=== PATIENT | female | born 1985 | race African-American/Black ===

== ENCOUNTER 2020-04-15 15:18 | Emergency (ER) | payer OTHER ==
--- OUTSIDE RECORDS SUMMARY | 2020-04-15 15:24 | XMS REPORT | Clinical Summary ---
:1985 Author Organization [facility] Address [address] [place] [address] Care Team Providers Name Role Phone Asked, No Pcp Primary Care Provider Unavailable Allergies No Known Allergies Medications Medication Sig Dispensed Refills Start Date End Date Status acetaminophen (TYLENOL Take 2 tablets 30 tablet 0 08/06/2019 0 09/05/2019 EXTRA STRENGTH) 500 MG (1,000 mg tablet total) by mouth every 6 (six) hours as needed for moderate pain for up to 30 days. ibuprofen (ADVIL) 600 Take 1 tablet 30 tablet 0 08/06/201912/2019 MG tablet (600 mg total) by mouth every 8 (eight) hours as needed for moderate pain for up to 30 days. metoclopramide Take 1 tablet 30 tablet 0 08/06/2019 09/05/2019 (REGLAN) 10 MG tablet (10 mg total) by mouth every 6 (six) hours for 30 days. Active Problems Not on file Encounters Date Type Specialty Care Team Description 08/06/2019 Emergency Emergency Medicine [facility] Deh ylupe (Primary Dx); Tachycardia; Myalgia; Arthralgia, uns pecified joint after 04/15/2019 Social History Tobacco Use Types Packs/Day Years Used Date Never Assessed Sex Assigned at Date Recorded Not on file Job Start Date Occupation Industry Not on file Not on file Not on file Travel History Travel Start Travel End No recent travel history available. Last Filed Vital Signs Vital Sign Reading Time Taken Comments Blood Pressure 115/61 08/06/2019 11:50 AM [employer] Pulse 105 08/06/2019 11:50 AM [employer] Temperature 37 C (98.6 F) 08/06/2019 11:50 AM [employer] Respiratory Rate 18 08/06/2019 11:50 AM [employer] Oxygen Saturation 95% 08/06/2019 11:50 AM [employer] Inhaled Oxygen Concentration - - Weight - - Height 170.2 cm (5' 7") 08/06/2019 11:51 AM [employer] Body Mass Index - - Plan of Treatment Health Maintenance Due Date Last Done Comments CERVICAL CANCER SCREENING 11/05/2008 INFLUENZA VACCINE 03/31/2020 07/10/2019 Procedures Procedure Name Priority Date/Time Associated Comments Diagnosis URINE CULTURE STAT 08/06/2019 1:50 Results fo r this PM [employer] procedure are i n the results section. GRAM STAIN STAT 08/06/2019 1:50 Results for this PM [employer] procedure are i n the results section. URINALYSIS SCREEN AND STAT 08/06/2019 12:59 Re sults for this MICROSCOPY, WITH PM [employer] procedure a re in REFLEX TO CULTURE the result s section. POC , URINE STAT 08/06/2019 12:55 Res ults for this PM [employer] procedure are i n the results section. RESPIRATORY PATHOGEN Routine 08/06/2019 12:17 Res ults for this PANEL PM [employer] procedure are i n the results section. INFLUENZA ANTIGEN Routine 08/06/2019 12:17 Result s for this TEST, REFLEX NEGATIVE PM [employer] proced ure are in TO RPP the results section. MUMPS VIRUS ANTIBODY, Routine 07/10/2019 10:21 Examination, Re sults for this IGG AM [employer] physical, employee procedure are in the results section. VARICELLA ZOSTER Routine 07/10/2019 10:21 Examination, Results for this VIRUS AB, IGG AM [employer] physical, employee procedur e are in the results section. RUBELLA AB IGG Routine 07/10/2019 10:21 Examination, Results f or this AM [employer] physical, employee procedure are in the results section. MEASLES (RUBEOLA) Routine 07/10/2019 10:21 Examination, Result s for this ANTIBODY IGG AM [employer] physical, employee procedure are in the results section. HEPATITIS B SURFACE Routine 07/10/2019 10:21 Examination, Resu lts for this ANTIBODY AM [employer] physical, employee procedure are in the results section. after 04/15/2019 Results Gram stain (08/06/2019 1:50 PM [employer]) Gram stain result No WBC's or organisms seen. LALY GAINES Comment: HOSPITAL Specimen Information Specimen Source: Urine Specimen Site: Clean catch Specimen Urine Performing Organization Address City/State/Zipcode Phone Number [facility] DEPARTMENT OF PATHOLOGY AND [address] [place] [phone] Urine culture (08/06/2019 1:50 PM [employer]) Urine culture Mixed rachid 10-4 col/cc [facility] isolate Comment: HOSPITAL Specimen Information Specimen Source: Urine Specimen Site: Clean catch Specimen Urine Performing Organization Address City/[facility] Phone Number [facility] DEPARTMENT OF PATHOLOGY AND [address] [place] [phone] Urinalysis screen and microscopy, with reflex to culture (08/06/2019 12:59 PM [employer]) Specimen site Clean catch [facility] Color, UA Yellow [facility] Appearance, UA Hazy [facility] Specific gravity, UA 1.029 1.001 - 1.035 [facility] pH, UA 5.0 5.0 - 8.5 [facility] Protein, UA Negative Negative [facility] Glucose, UA Negative Negative [facility] Ketones, UA Negative Negative [facility] Bilirubin, UA Negative Negative [facility] Blood, UA Large (A) Negative [facility] Nitrite, UA Negative Negative [facility] Urobilinogen, UA <2.0 <2.0 [facility] Leukocyte esterase, Negative Negative [facility] Epithelial cells, UA <1 /HPF [facility] Round epithelial <1 0 - 1 /HPF [facility] cells, HOSPITAL WBC, UA 2 0 - 4 /HPF [facility] RBC, UA 3 0 - 5 /HPF [facility] Bacteria, UA Moderate (A) None seen [facility] Yeast, UA None seen [facility] Yeast with None seen [facility] pseudohyphae, HOSPITAL Specimen Urine Performing Organization Address City/[facility]/Zipcode Phone Number [facility] DEPARTMENT OF PATHOLOGY AND [address] [place] [phone] POC , urine (08/06/2019 12:55 PM [employer]) Pathologist Sig nature test urine, POC Negative QC done Yes Specimen Urine Respiratory pathogen panel (08/06/2019 12:17 PM [employer]) Respiratory Negative for all pathogens tested: [facility] pathogen panel Negative for Adenovirus [facility] Negative for Coronavirus HKU1 [facility] Negative for Coronavirus NL63 Negative for Coronavirus 229E Negative for Coronavirus OC43 Negative for Human Metapneumovirus Negative for Rhinovirus/Enterovirus Negative for Influenza A Negative for Influenza A/H1 Negative for Influenza A/H3 Negative for Influenza A/H1-2009 Negative for Influenza B Negative for Parainfluenza Virus 1 Negative for Parainfluenza Virus 2 Negative for Parainfluenza Virus 3 Negative for Parainfluenza Virus 4 Negative for Respiratory Syncytial Virus Negative for Bordetella pertussis Negative for Chlamydophila pneumoniae Negative for Mycoplasma pneumoniae This real-time PCR assay detects the presence of nucle ic acids (RNA or DNA) for the respiratory pathogens liste d. A result of "Not-detected" does not exclude the possib ility of the presence of one or more pathogens at concentrat ions less than the detectable limits of the assay. Comment: Specimen Information Specimen Source: Nares Specimen Site: Left Specimen Nares - Left Performing Organization Address City/[facility] Phone Number [facility] DEPARTMENT OF PATHOLOGY AND [address] [place] [phone] Influenza antigen test, reflex negative to RPP (08/06/2019 12:17 PM [employer]) [facility] Influenza antigen Negative for Influenza A/B antigen. [facility] Comment: HOSPITAL Specimen Information Specimen Source: Nares Specimen Site: Left Specimen Nares - Left Performing Organization Address City/[facility]/Zipcode Phone Number [facility] DEPARTMENT OF PATHOLOGY AND [address] [place] [phone] Measles (rubeola) antibody IgG (07/10/2019 10:21 AM [employer]) [facility] Measles (rubeola) Positive (A) Negative [facility] Ab, IgG Comment: HOSPITAL IgG antibody to Measles detected. This may indicate that the patient was exposed to Measles through infection or vaccination. Specimen Serum Performing Organization Address City/[facility]/Zipcode Phone Number [facility] DEPARTMENT OF PATHOLOGY AND [address] [place], [place] [id number] [address] [place] [phone] Rubella Ab IgG (07/10/2019 10:21 AM [employer]) Rubella IgG Positive Negative [facility] antibody Comment: [facility]OS[facility]ITAL IgG antibody levels are at a level that are considered to indicate positive immunity Specimen Serum Performing Organization Address City/State/Zipcode Phone Number [facility] DEPARTMENT OF PATHOLOGY AND [address] [place] [address] [phone] [address] Hepatitis B surface antibody (07/10/2019 10:21 AM [employer]) Pathologist Sig nature Hepatitis B surface Reactive (A) Non-reactive [facility] Specimen Blood Performing Organization Address City/[facility] Cent[facility]ode Phone Number [facility] DEPARTMENT OF PATHOLOGY AND [address] [place] [phone] Varicella zoster virus Ab, IgG (07/10/2019 10:21 AM [employer]) Pathologist Sig nature VZV IgG Positive (A) Negative LALY GAINES Comment: HOSPITAL IgG antibody to VZV detected. This may indicate that the patient was exposed to VZV through infection or vaccination. Specimen Serum Performing Organization Address City/[facility]/Zipcode Phone Number [facility] DEPARTMENT OF PATHOLOGY AND [address] [place] [phone] Mumps virus antibody, IgG (07/10/2019 10:21 AM [employer]) Pathologist Sig nature Mumps Ab, IgG Positive (A) Negative [facility] Comment: HOSPITAL IgG antibody to Mumps detected. This may indicate that the patient was exposed to Mumps through infection or vaccination. Specimen Serum Performing Organization Address City/State/Zipcode Phone Number [facility] DEPARTMENT OF PATHOLOGY AND [address] [place] [address] [place] [phone] after 04/15/2019 Advance Directives For more information, please contact: [phone] Type Date Recorded Patient Supply Person Explanati on Advance Directives, Living Will and Medical Power of Community Recreation Programmer
--- OUTSIDE RECORDS SUMMARY | 2020-04-15 15:25 | XMS REPORT | Continuity of Care Document ---
:1985 Author Organization [facility] Care Team Providers Name Role Phone [facility] Unavailable Un available Problems Problem Status Onset Classification Date Comments Sourc e Date Reported Allergy, 06/27/2019 [facility] r unspecified, 9 [place] initial encounter Wheezing 06/27/2019 [facility] 9 [place] ALLERGIC Active [facility] REACTION/ 9 [place] ABDOMINAL PAIN / VOMI FOLLOWUP/WORKNO [facility] [place] Unspecified 05/30/2019 [place] convulsions 9 SEISURE Active [facility] st 9 Epilepsy, 04/11/2019 Memori al unspecified, 9 [place] not intractable, without status epilepticus SEIZURES Active Memoria l 9 [facility] TEMPORAL BONE Active Mem orial FRACTURE 9 [facility] EAR BLEED Active Memoria l 9 [place] Nausea with 10/05/2018 Nic rial vomiting, 9 [place] unspecified NAUSA, Active Memoria l VOMMITING 9 [facility] SKIN Active Memoria l IRRITAITION TO 9 City HANDS/FOREARM Contact with 09/25/2018 Mem orial and (suspected) 9 City exposure to other hazardous, chiefly nonmedicinal, chemicals Other skin 09/25/2018 Memor ial changes 9 [place] Insect bite 09/22/2018 MH Nic rial (nonvenomous) 9 [place] of scalp, initial encounter Insect bite 09/22/2018 MH Nic rial (nonvenomous) 9 [place] of left wrist, initial encounter Insect bite 09/22/2018 MH Nic rial (nonvenomous) 9 [place] of right wrist, initial encounter INSECT BITES Active MH Nic rial 9 [facility] OT FRACTURE OF Active [facility] BASE OF SKULL, [facility] IN FOR Medications Medication Details Route Status Patient Ordering Order Source Instructions Provider Date Famotidine 20 MG 20 mg = 1 Active Gr eater Oral Tablet tab, PO, 2018 [facility] BID, # 6 tab, 0 Refill(s) predniSONE 20 mg 60 mg = 3 Active Gr eater oral tablet tab, PO, 2018 Daily, Take 3 tablets for 60 mg dose, X 3 day, # 9 tab, 0 Refill(s) Diphenhydramine 25 mg = 1 Active Artemio ater Hydrochloride 25 tab, PO, 2018 [place] s MG Oral Tablet BID, X 5 [Benadryl] day, # 10 tab, 0 Refill(s) albuterol 90 2 puff, Active [facility] mcg/inh INHALATION, 2018 [facility] inhalation Q4H, PRN for aerosol wheezing, # 9 gm, 0 Refill(s) Sodium Chloride 1,000 mL, Inactive Gr eater 0.9% (Bolus) IV Infuse Over: 2018 [place] 1 hr, Route: IV, ONCE, Priority: STAT, Dosing Weight 77.955 kg, Start date: 06/25/19 0:56:00 CLEANER GREASER, Stop date: 06/25/19 0:56:00 CLEANER GREASER Albuterol 0.833 9 mL, Route: Inactive Greater MG/ML / NEB, Dosing 2018 [facility] Ipratropium Weight [place] 0.167 77.955, kg, MG/ML Inhalant ONCE, Start Solution [DuoNeb] date: 06/25/19 0:52:00 CLEANER GREASER, Stop date: 06/25/19 0:52:00 CLEANER GREASER Solu-Medrol Notes: (Same Inactive Gre ater as:Solu-MEDR 2019 [facility] OL, A-Methapred) Benadryl Notes: (Same Inactive Greate r as: 2019 [place] Benadryl) Pepcid Notes: (Same Inactive Greater as: Pepcid) 2019 [place] Can be dilute in 5-10cc NS IVP: Slow IV push over at least 2 minutes. Levetiracetam 500 Notes: (Same Inactive MG Oral Tablet as:Keppra) 2019 [facility] est [Keppra] Motrin Notes: (Same Inactive as: Motrin) 2018 [facility] "Do Not Crush" Give with food. Levetiracetam 750 750 mg = 1 Active MG Oral Tablet tab, PO, 2018 [facility] [Keppra] BID, # 60 [facility] tab, 0 Refill(s) Tylenol 650 mg, Inactive Route: PO, 2018 [facility] Drug form: [facility] TAB, ONCE, Dosing Weight 87.273, kg, Priority: STAT, Start date: 04/09/19 17:13:00 CDT, Stop date: 04/09/19 17:13:00 CDT Ativan 1 mg, Route: Inactive PO, Drug 2018 [facility] form: TAB, [facility] ONCE, Dosing Weight 87.273, kg, Priority: STAT, Start date: 04/09/19 17:13:00 CDT, Stop date: 04/09/19 17:13:00 CDT Keppra 1,000 mg, Inactive Route: IV, 2018 [facility] ONCE, Dosing [facility] Weight 87.273, kg, Priority: STAT, Start date: 04/09/19 17:12:00 CDT, Stop date: 04/09/19 17:12:00 CDT Meclizine Notes: (Same No Longer as: Active 2019 [facility] Antivert) [facility] Meclizine Notes: (Same No Longer as: Active 2019 [facility] Antivert) [facility] Levetiracetam 500 Notes: (Same No Longer MG Oral Tablet as:Keppra) Active 2019 Memori al [Keppra] [facility] Morphine Notes: (Same No Longer as:MORPhine Active 2019 [facility] Sulfate) [facility] Glucagon 1 mg, Route: No Longer IM, Drug Active 2018 [facility] form: [facility] PDR/INJ, PRN, Dosing Weight 81.818, kg, PRN Blood Glucose Results, Start date: 10/15/18 16:08:00 CDT, Duration: 30 day, Stop date: 11/14/18 16:07:00 CDT Acetaminophen Notes: Do No Longer not exceed [address] [place] [id number] gm/day. City (Same as: Tylenol) Ondansetron Notes: (Same No Longer as: Zofran) Active 2018 [facility] MEDICATION WASTE Product Size: 4 mg Product Wasted: _0__ mg Dextrose 50% 25 gm, 50 No Longer Syringe mL, Route: Active 2018 [facility] IVP, Drug City Form: INJ, Dosing Weight 81.818, kg, PRN, PRN Blood Glucose Results, Start date: 10/15/18 16:08:00 CDT, Duration: 30 day, Stop date: 11/14/18 16:07:00 CDT Levetiracetam 500 1,000 mg = 2 Active H MG Oral Tablet tab, PO, 2018 [facility] [Keppra] BID, 0 City Refill(s) Ondansetron 4 MG 4 mg = 1 Active Disintegrating tab, PO, 2018 [facility] Tablet [Zofran] BID, PRN [facility] Nausea and Vomiting, Dissolve tab under tongue, # 10 tab, 0 Refill(s) NS (Bolus) IV 1,000 mL, Inactive 1,000 ml/hr, 2018 [facility] Infuse Over: City 1 hr, Route: IV, 1,000, Drug form: INJ, ONCE, Priority: STAT, Dosing Weight 81.818 kg, Start date: 10/02/18 9:12:00 CLEANER GREASER, Stop date: 10/02/18 9:12:00 CLEANER GREASER Allergies, Adverse Reactions, Alerts Substance Category Reaction Severity Reaction Status Date Comments S ource type Reported No Known Assertion Drug Medication allergy [facility] er Allergies [facility] s Immunizations No Data Provided for This Section Results Order Name Results Value Reference Date Interpretation Comments Delilah rce [facility] CHEM PANEL Glucose Lvl 111 70 - 99 06/25 [facility] CHEM PANEL BUN 13 7 - 22 06/25 [facility] CHEM PANEL Creatinine 0.89 0.50 - 06/25 Lvl 1.40 /2018 [facility] CHEM PANEL Sodium Lvl 141 135 - 145 06/25 [facility] CHEM PANEL Potassium 3.7 3.5 - 5.1 06/25 Lvl /2018 [facility] CHEM PANEL Chloride Lvl 110 95 - 109 06/25 [facility] CHEM PANEL CO2 25 24 - 32 06/25 [facility] CHEM PANEL Calcium Lvl 8.5 8.5 - 10.5 06/25 [facility] CHEM PANEL Total 7.1 6.4 - 8.4 06/25 Protein [facility] CHEM PANEL Albumin Lvl 3.6 3.5 - 5.0 06/25 [facility] CHEM PANEL ALT 13 0 - 65 06/25 [facility] CHEM PANEL AST 12 0 - 37 06/25 [facility] CHEM PANEL Alk Phos 50 39 - 136 06/25 [facility] CHEM PANEL Bili Total 0.3 0.2 - 1.3 06/25 [facility] CHEM PANEL eGFR 87 06/25 Comment: The [facility] eGFR is [place] calculated using the CKD-EPI formula. In most young, healthy individuals the eGFR will be >90 mL/min/1.73m2 . The eGFR declines with age. An eGFR of 60-89 may be normal in some populations, particularly the elderly, for whom the CKD-EPI formula has not been extensively validated. Use of the eGFR is not recommended in the following populations:< br/>
Natalie viduals with unstable creatinine concentration s, including patients and those with serious co-morbid conditions.<b r/>
Patie nts with extremes in muscle mass or diet.

The data above are obtained from the National Kidney Disease Education Program (NKDEP) which additionally recommends that when the eGFR is used in patients with extremes of body mass index for purposes of drug dosing, the eGFR should be multiplied by the estimated BMI. CHEM PANEL AGAP 9.7 10.0 - 06/25 20.0 [facility] CHEM PANEL B/C Ratio 15 6 - 25 06/25 [facility] CHEM PANEL Globulin 3.5 2.7 - 4.2 06/25 [facility] CHEM PANEL A/G Ratio 1.0 0.7 - 1.6 06/25 [facility] ENDOCRINOLO S Preg Negative Negative 06/25 GY *NA* /2018 [facility] (06/25/19 12:48 AM) [place] HEMATOLOGY WBC 7.0 3.7 - 10.4 06/25 [facility] HEMATOLOGY RBC 3.81 4.20 - 06/25 5.40 /2018 [facility] [place] HEMATOLOGY Hgb 10.0 12.0 - 06/25 16.0 /2018 [facility] [place] HEMATOLOGY Hct 30.3 36.0 - 06/25 48.0 /2018 [facility] [place] HEMATOLOGY MCV 79.6 80.0 - 06/25 98.0 /2018 [facility] [place] HEMATOLOGY MCH 26.3 27.0 - 06/25 MH 31.0 /2018 [facility] [place] HEMATOLOGY MCHC 33.0 32.0 - 06/25 36.0 /2018 [facility] HEMATOLOGY RDW 13.6 11.5 - 06/25 14.5 /2018 [facility] HEMATOLOGY Platelet 223 133 - 450 06/25 /2018 [facility] HEMATOLOGY MPV 6.8 7.4 - 10.4 06/25 /2018 [facility] HEMATOLOGY Segs 60.3 45.0 - 06/25 75.0 /2018 [facility] HEMATOLOGY Lymphocytes 28.3 20.0 - 06/25 40.0 /2018 [facility] HEMATOLOGY Monocytes 9.3 2.0 - 12.0 06/25 /2018 [facility] [place] HEMATOLOGY Eosinophils 1.7 0.0 - 4.0 06/25 /2018 [facility] [place] HEMATOLOGY Basophils 0.4 0.0 - 1.0 06/25 /2018 [facility] HEMATOLOGY Neutrophils 4.2 1.5 - 8.1 06/25 MH # /2018 [facility] HEMATOLOGY Lymphocytes 2.0 1.0 - 5.5 06/25 MH # /2018 [facility] HEMATOLOGY Monocytes # 0.7 0.0 - 0.8 06/25 /2018 [facility] HEMATOLOGY Eosinophils 0.1 0.0 - 0.5 06/25 MH # /2018 [facility] ELECTROLYTE Sodium Lvl 139 135 - 145 /10 MH S /2018 [facility] ELECTROLYTE Potassium 3.7 3.5 - 5.1 04/09 MH S Lvl /2018 [facility] ELECTROLYTE Chloride Lvl 110 95 - 109 04/09 MH S /2018 [facility] ELECTROLYTE Calcium Lvl 8.6 8.5 - 10.5 04/09 MH S /2018 [facility] ELECTROLYTE Glucose Lvl 95 70 - 99 04/09 MH S /2018 [facility] ELECTROLYTE BUN 14 7 - 22 / MH S /2018 [facility] ELECTROLYTE CO2 23 24 - 32 / MH S /2018 [facility] ELECTROLYTE Creatinine 0.96 0.50 - 04/09 MH S Lvl 1.40 /2018 [facility] ELECTROLYTE eGFR 79 04/09 Result S /2018 Comment: The [facility] eGFR is [place] calculated using the CKD-EPI formula. In most young, healthy individuals the eGFR will be >90 mL/min/1.73m2 . The eGFR declines with age. An eGFR of 60-89 may be normal in some populations, particularly the elderly, for whom the CKD-EPI formula has not been extensively validated. Use of the eGFR is not recommended in the following populations:< br/>
Natalie viduals with unstable creatinine concentration s, including patients and those with serious co-morbid conditions.<b r/>
Patie nts with extremes in muscle mass or diet.

The data above are obtained from the National Kidney Disease Education Program (NKDEP) which additionally recommends that when the eGFR is used in patients with extremes of body mass index for purposes of drug dosing, the eGFR should be multiplied by the estimated BMI. ELECTROLYTE AGAP 9.7 10.0 - 04/09 S 20.0 [facility] ENDOCRINOLO S Preg Negative Negative 04/09 GY *NA* /2018 [facility] (04/09/19 5:14 PM) [facility] HEMATOLOGY WBC 9.1 3.7 - 10.4 04/09 [facility] HEMATOLOGY RBC 4.27 4.20 - 04/09 5.40 [facility] HEMATOLOGY Hgb 11.2 12.0 - 04/09 16.0 [facility] HEMATOLOGY Hct 34.0 36.0 - 04/09 48.0 [facility] HEMATOLOGY MCV 79.7 80.0 - 04/09 98.0 /2018 [facility] HEMATOLOGY MCH 26.1 27.0 - 04/09 31.0 [facility] HEMATOLOGY MCHC 32.8 32.0 - 04/09 36.0 [facility] HEMATOLOGY RDW 14.1 11.5 - 04/09 14. [facility] HEMATOLOGY Platelet 262 133 - 450 04/09 [facility] HEMATOLOGY MPV 7.7 7.4 - 10.4 04/09 [facility] HEMATOLOGY Segs 64.1 45.0 - 04/09 75.0 /2018 [facility] HEMATOLOGY Lymphocytes 23.8 20.0 - 04/09 MH 40.0 [facility] HEMATOLOGY Monocytes 9.8 2.0 - 12.0 04/09 [facility] HEMATOLOGY Eosinophils 1.6 0.0 - 4.0 04/09 [facility] HEMATOLOGY Basophils 0.7 0.0 - 1.0 04/09 [facility] HEMATOLOGY Neutrophils 5.8 1.5 - 8.1 04/09 [facility] HEMATOLOGY Lymphocytes 2.2 1.0 - 5.5 04/09 [facility] HEMATOLOGY Monocytes # 0.9 0.0 - 0.8 04/09 [facility] HEMATOLOGY Eosinophils 0.1 0.0 - 0.5 04/09 [facility] HEMATOLOGY Basophils # 0.1 0.0 - 0.2 04/09 [facility] CHEM PANEL BUN 13 7 - 22 10/17 [facility] CHEM PANEL CO2 27 24 - 32 10/17 [facility] CHEM PANEL Potassium 4.2 3.5 - 5.1 10/17 Lvl /2018 [facility] CHEM PANEL Sodium Lvl 143 135 - 145 10/17 [facility] CHEM PANEL Chloride Lvl 105 95 - 109 10/17 [facility] CHEM PANEL Calcium Lvl 9.1 8.5 - 10.5 10/17 [facility] CHEM PANEL Glucose Lvl 82 70 - 99 10/17 [facility] CHEM PANEL eGFR 97 10/17 Result Comment: The [facility] eGFR is [place] calculated using the CKD-EPI formula. In most young, healthy individuals the eGFR will be >90 mL/min/1.73m2 . The eGFR declines with age. An eGFR of 60-89 may be normal in some populations, particularly the elderly, for whom the CKD-EPI formula has not been extensively validated. Use of the eGFR is not recommended in the following populations:< br/>
Natalie viduals with unstable creatinine concentration s, including patients and those with serious co-morbid conditions.<b r/>
Patie nts with extremes in muscle mass or diet.

The data above are obtained from the National Kidney Disease Education Program (NKDEP) which additionally recommends that when the eGFR is used in patients with extremes of body mass index for purposes of drug dosing, the eGFR should be multiplied by the estimated BMI. CHEM PANEL Creatinine 0.92 0.50 - 03 MH Lvl 1.40 [facility] CHEM PANEL AGAP 15.2 10.0 - 10/17 MH 20.0 [facility] HEMATOLOGY Hct 36.7 36.0 - 10/17 MH 48.0 /2018 [facility] HEMATOLOGY MCV 79.8 80.0 - 10/17 MH 98.0 /2018 [facility] HEMATOLOGY MPV 8.0 7.4 - 10.4 10/17 [facility] HEMATOLOGY MCHC 32.8 32.0 - 10/17 MH 36.0 [facility] HEMATOLOGY Platelet 237 133 - 450 03 [facility] HEMATOLOGY MCH 26.1 27.0 - 10/17 MH 31.0 [facility] HEMATOLOGY RDW 13.5 11.5 - 10/17 MH 14.5 [facility] HEMATOLOGY RBC 4.60 4.20 - 10/17 MH 5.40 /2018 [facility] HEMATOLOGY WBC 6.4 3.7 - 10.4 10/17 [facility] HEMATOLOGY Hgb 12.0 12.0 - 10/17 MH 16.0 [facility] HEMATOLOGY Segs 53.9 45.0 - 10/17 MH 75.0 /2018 [facility] HEMATOLOGY Monocytes 10.2 2.0 - 12.0 10/17 [facility] HEMATOLOGY Basophils 0.4 0.0 - 1.0 10/17 [facility] HEMATOLOGY Lymphocytes 33.9 20.0 - 10/17 MH 40.0 [facility] HEMATOLOGY Eosinophils 1.6 0.0 - 4.0 10/17 [facility] HEMATOLOGY Neutrophils 3.5 1.5 - 8.1 10/17 MH # /2019 [facility] HEMATOLOGY Lymphocytes 2.2 1.0 - 5.5 10/17 # /2018 [facility] HEMATOLOGY Monocytes # 0.7 0.0 - 0.8 10/17 [facility] HEMATOLOGY Eosinophils 0.1 0.0 - 0.5 10/17 [facility] CHEM PANEL Phosphorus 4.6 2.5 - 4.5 10/16 [facility] CHEM PANEL Albumin Lvl 3.4 3.5 - 5.0 10/16 [facility] CHEM PANEL BUN 11 7 - 22 10/16 [facility] CHEM PANEL CO2 26 24 - 32 10/16 [facility] CHEM PANEL AGAP 12.6 10.0 - 03 MH 20.0 /2018 [facility] CHEM PANEL Glucose Lvl 90 70 - 99 10/16 [facility] CHEM PANEL Alk Phos 46 39 - 136 10/16 [facility] CHEM PANEL Chloride Lvl 106 95 - 109 10/16 [facility] CHEM PANEL Potassium 3.6 3.5 - 5.1 10/16 MH Lvl /2018 [facility] CHEM PANEL Sodium Lvl 141 135 - 145 10/16 [facility] CHEM PANEL Calcium Lvl 8.7 8.5 - 10.5 10/16 [facility] CHEM PANEL Total 7.2 6.4 - 8.4 10/16 MH Protein [facility] CHEM PANEL AST 11 0 - 37 10/16 [facility] CHEM PANEL eGFR 115 10/16 Result Comment: The [facility] eGFR is [place] calculated using the CKD-EPI formula. In most young, healthy individuals the eGFR will be >90 mL/min/1.73m2 . The eGFR declines with age. An eGFR of 60-89 may be normal in some populations, particularly the elderly, for whom the CKD-EPI formula has not been extensively validated. Use of the eGFR is not recommended in the following populations:< br/>
Natalie viduals with unstable creatinine concentration s, including patients and those with serious co-morbid conditions.<b r/>
Patie nts with extremes in muscle mass or diet.

The data above are obtained from the National Kidney Disease Education Program (NKDEP) which additionally recommends that when the eGFR is used in patients with extremes of body mass index for purposes of drug dosing, the eGFR should be multiplied by the estimated BMI. CHEM PANEL Bili Total 1.0 0.2 - 1.3 10/16 [facility] CHEM PANEL ALT 11 0 - 65 10/16 [facility] CHEM PANEL Creatinine 0.80 0.50 - 10/16 Lvl 1.40 /2018 [facility] CHEM PANEL Globulin 3.8 2.7 - 4.2 10/16 [facility] CHEM PANEL A/G Ratio 0.9 0.7 - 1.6 10/16 [facility] CHEM PANEL B/C Ratio 14 6 - 25 10/16 [facility] CHEM PANEL Magnesium 2.0 1.8 - 2.4 10/16 MH Lvl /2019 [facility] HEMATOLOGY Lymphocytes 2.6 1.0 - 5.5 10/16 MH # /2019 [facility] HEMATOLOGY Lymphocytes 33.7 20.0 - 03 MH 40.0 /2018 [facility] HEMATOLOGY Segs 54.0 45.0 - 10/16 MH 75.0 /2018 [facility] HEMATOLOGY Eosinophils 1.7 0.0 - 4.0 10/16 /2019 [facility] HEMATOLOGY Monocytes 9.9 2.0 - 12.0 10/16 MH /2018 [facility] HEMATOLOGY Neutrophils 4.2 1.5 - 8.1 10/16 MH # /2019 [facility] HEMATOLOGY Basophils 0.7 0.0 - 1.0 10/16 /2018 [facility] HEMATOLOGY Basophils # 0.1 0.0 - 0.2 10/16 /2018 [facility] HEMATOLOGY Monocytes # 0.8 0.0 - 0.8 10/16 /2018 [facility] HEMATOLOGY Eosinophils 0.1 0.0 - 0.5 10/16 MH # /2019 [facility] HEMATOLOGY Platelet 241 133 - 450 10/16 /2018 [facility] HEMATOLOGY MPV 7.8 7.4 - 10.4 10/16 /2018 [facility] HEMATOLOGY RDW 13.2 11.5 - 10/16 MH 14.5 [facility] HEMATOLOGY MCH 26.5 27.0 - 10/16 31.0 [facility] HEMATOLOGY MCHC 33.5 32.0 - 10/16 MH 36.0 /2018 [facility] HEMATOLOGY MCV 79.2 80.0 - 10/16 98.0 /2018 [facility] HEMATOLOGY Hct 37.3 36.0 - 10/16 MH 48.0 /2019 [facility] HEMATOLOGY RBC 4.71 4.20 - 10/16 MH 5.40 /2019 [facility] HEMATOLOGY Hgb 12.5 12.0 - 10/16 MH 16.0 [facility] HEMATOLOGY WBC 7.7 3.7 - 10.4 10/16 /2018 [facility] ELECTROLYTE AGAP 12.1 10.0 - 10/15 S 20.0 [facility] ELECTROLYTE CO2 28 24 - 32 10/15 S /2018 [facility] ELECTROLYTE BUN 9 7 - 22 10/15 S /2018 [facility] ELECTROLYTE Glucose Lvl 147 70 - 99 10/15 S [facility] ELECTROLYTE eGFR 89 10/15 Result MH S Comment: The [facility] eGFR is [place] calculated using the CKD-EPI formula. In most young, healthy individuals the eGFR will be >90 mL/min/1.73m2 . The eGFR declines with age. An eGFR of 60-89 may be normal in some populations, particularly the elderly, for whom the CKD-EPI formula has not been extensively validated. Use of the eGFR is not recommended in the following populations:< br/>
Natalie viduals with unstable creatinine concentration s, including patients and those with serious co-morbid conditions.<b r/>
Patie nts with extremes in muscle mass or diet.

The data above are obtained from the National Kidney Disease Education Program (NKDEP) which additionally recommends that when the eGFR is used in patients with extremes of body mass index for purposes of drug dosing, the eGFR should be multiplied by the estimated BMI. ELECTROLYTE Creatinine 0.99 0.50 - 10/15 MH S Lvl 1.40 [facility] ELECTROLYTE Potassium 4.1 3.5 - 5.1 10/15 MH S Lvl /2018 [facility] ELECTROLYTE Chloride Lvl 103 95 - 109 10/15 MH S [facility] ELECTROLYTE Sodium Lvl 139 135 - 145 10/15 S [facility] ELECTROLYTE Calcium Lvl 9.3 8.5 - 10.5 10/15 S [facility] ENDOCRINOLO S Preg Negative Negative 10/15 GY *NA* /2018 [facility] (10/15/18 12:17 PM) [facility] HEMATOLOGY MPV 7.7 7.4 - 10.4 10/15 [facility] HEMATOLOGY RBC 5.08 4.20 - 10/15 MH 5.40 [facility] HEMATOLOGY Hgb 13.5 12.0 - 10/15 MH 16.0 [facility] HEMATOLOGY Hct 40.3 36.0 - 10/15 MH 48.0 [facility] HEMATOLOGY WBC 6.4 3.7 - 10.4 10/15 [facility] HEMATOLOGY MCHC 33.5 32.0 - 10/15 MH 36.0 [facility] HEMATOLOGY Platelet 274 133 - 450 10/15 [facility] HEMATOLOGY RDW 13.5 11.5 - 10/15 MH 14.5 [facility] HEMATOLOGY MCV 79.5 80.0 - 10/15 MH 98.0 /2019 [facility] HEMATOLOGY MCH 26.6 27.0 - 03/18 MH 31.0 /2019 [facility] HEMATOLOGY Lymphocytes 1.2 1.0 - 5.5 03/18 MH # /2019 [facility] HEMATOLOGY Monocytes # 0.3 0.0 - 0.8 03/18 MH /2019 [facility] HEMATOLOGY Eosinophils 0.1 0.0 - 0.5 03/18 MH # /2019 [facility] HEMATOLOGY Basophils 0.3 0.0 - 1.0 03/18 MH /2019 [facility] HEMATOLOGY Neutrophils 4.7 1.5 - 8.1 03/18 MH # /2019 [facility] HEMATOLOGY Lymphocytes 19.5 20.0 - 03/18 MH 40.0 /2019 [facility] HEMATOLOGY Eosinophils 1.0 0.0 - 4.0 /18 /2018 [facility] HEMATOLOGY Monocytes 5.0 2.0 - 12.0 /18 /2018 [facility] HEMATOLOGY Segs 74.2 45.0 - 03/ MH 75.0 /2019 [facility] HEMATOLOGY PTT 36.5 22.9 - 03/18 MH 35.8 /2019 [facility] HEMATOLOGY PT 13.4 12.0 - 03/18 MH 14.7 /2019 [facility] HEMATOLOGY INR 1.04 0.85 - 03/18 MH 1.17 /2019 [facility] ELECTROLYTE AGAP 12.1 10.0 - 03/05 S 20.0 /2018 [facility] ELECTROLYTE Calcium Lvl 8.5 8.5 - 10.5 03/ S /2018 [facility] ELECTROLYTE Sodium Lvl 139 135 - 145 03/05 S /2018 [facility] ELECTROLYTE Potassium 4.1 3.5 - 5.1 03/05 S Lvl /2019 [facility] ELECTROLYTE Chloride Lvl 107 95 - 109 03/05 S /2018 [facility] ELECTROLYTE Glucose Lvl 82 70 - 99 03/05 S /2018 [facility] ELECTROLYTE CO2 24 24 - 32 03/05 S /2018 [facility] ELECTROLYTE BUN 13 7 - 22 03/05 S /2018 [facility] ELECTROLYTE eGFR 105 03/05 [facility] [facility] Comment: The [facility] eGFR is City calculated using the CKD-EPI formula. In most young, healthy individuals the eGFR will be >90 mL/min/1.73m2 . The eGFR declines with age. An eGFR of 60-89 may be normal in some populations, particularly the elderly, for whom the CKD-EPI formula has not been extensively validated. Use of the eGFR is not recommended in the following populations:< br/>
Natalie viduals with unstable creatinine concentration s, including patients and those with serious co-morbid conditions.<b r/>
Patie nts with extremes in muscle mass or diet.

The data above are obtained from the National Kidney Disease Education Program (NKDEP) which additionally recommends that when the eGFR is used in patients with extremes of body mass index for purposes of drug dosing, the eGFR should be multiplied by the estimated BMI. ELECTROLYTE Creatinine 0.86 0.50 - 10/02 S Lvl 1.40 [facility] ENDOCRINOLO S Preg Negative Negative 10/02 GY *NA* /2018 [facility] (10/02/18 9:56 AM) [facility] HEMATOLOGY Basophils 0.3 0.0 - 1.0 10/02 [facility] HEMATOLOGY Neutrophils 4.1 1.5 - 8.1 10/02 MH # [facility] HEMATOLOGY Monocytes # 0.6 0.0 - 0.8 10/02 [facility] HEMATOLOGY Eosinophils 0.1 0.0 - 0.5 10/02 MH # [facility] HEMATOLOGY Lymphocytes 1.4 1.0 - 5.5 10/02 # [facility] HEMATOLOGY Lymphocytes 22.2 20.0 - 0305 MH 40.0 [facility] HEMATOLOGY Monocytes 9.3 2.0 - 12.0 10/02 [facility] HEMATOLOGY Eosinophils 0.9 0.0 - 4.0 10/02 [facility] HEMATOLOGY Segs 67.3 45.0 - 03/05 MH 75.0 [facility] HEMATOLOGY Platelet 261 133 - 450 10/02 [facility] HEMATOLOGY MCHC 33.1 32.0 - 03/05 MH 36.0 [facility] HEMATOLOGY RDW 13.7 11.5 - 03/05 MH 14.5 [facility] HEMATOLOGY MPV 7.8 7.4 - 10.4 10/02 [facility] HEMATOLOGY MCV 79.5 80.0 - 10/02 MH 98.0 [facility] HEMATOLOGY RBC 4.74 4.20 - 03/05 MH 5.40 [facility] MCH 26.3 27.0 - 0305 MH 31.0 [facility] HEMATOLOGY Hct 37.7 36.0 - 03 MH 48.0 /2018 [facility] HEMATOLOGY WBC 6.1 3.7 - 10.4 10/02 /2018 [facility] HEMATOLOGY Hgb 12.5 12.0 - 10/02 16.0 /2018 [facility] URINE AND UA Mucus Few /LPF None Seen 10/02 STOOL /LPF /2018 [facility] URINE AND UA WBC <1 0 - 5 10/02 STOOL /2018 [facility] URINE AND UA RBC 1 0 - 2 10/02 STOOL /2018 [facility] URINE AND UA Sq Epi Occasional Few /LPF 10/02 STOOL /LPF /2018 [facility] URINE AND UA Color Light Yellow Yellow 10/02 STOOL *NA* /2018 [facility] (10/02/18 9:56 AM) [facility] URINE AND UA Turbidity Clear Clear 10/02 STOOL (10/02/18 9:56 AM) [facility] URINE AND UA Spec Grav 1.018 <=1.030 10/02 STOOL /2018 [facility] URINE AND UA pH 7.0 5.0 - 8.0 10/02 STOOL /2018 [facility] URINE AND UA Nitrite Negative Negative 10/02 STOOL (10/02/18 9:56 AM) /2018 [facility] URINE AND UA Leuk Est Negative Negative 10/02 STOOL (10/02/18 9:56 AM) /2018 [facility] URINE AND Micro? Performed 10/02 STOOL (10/02/18 9:56 AM) [facility] URINE AND UA Protein Negative Negative 10/02 STOOL (10/02/18 9:56 AM) [facility] URINE AND UA Glucose Negative Negative 10/02 STOOL *NA* /2018 [facility] (10/02/18 9:56 AM) [facility] URINE AND UA Ketones Negative 10/02 STOOL /2018 [facility] URINE AND UA Bili Negative Negative 10/02 STOOL *NA* [facility] (10/02/18 9:56 AM) [facility] URINE AND UA Blood Negative Negative 10/02 STOOL (10/02/18 9:56 AM) [facility] URINE AND UA <=1.0 0.1 - 1.0 10/02 STOOL Urobilinogen mg/dL /2018 [facility] Pathology Reports No Data Provided for This Section Diagnostic Reports Report Value Date Source Ankle 3 views DX Exam: Right ankle x-ray, 3 views 04/09/2019 [facility] Reason for Exam: - ankle pain Comparison Exam: None Discussion: No fractures or dislocations are seen within the right ankle. The ankle mortise and tibial plafond are intact. No suspicious osteoblastic or osteolytic lesions. No radiopaque foreign bodies. The joint spaces are intact. Impression: 1. No acute bony abnormalities seen within the right ankle. Brain wo contrast CT Brain wo contrast CT 04/09/2019 16:51 CDT [facility] Clinical Indication: Pain - trauma; COMPARISON: 10/15/2018 CT TECHNIQUE: Axial CT images o f the brain are obtained from the skull base to the vertex. Axial, sagittal, and coronal images are interpreted. Contrast: No IV contrast. DLP: 901 mGy-cm. This exam w as performed according to our departmental dose- optimization protocol, which includes automated exposure control, adjustment of the mA and/or kV according to patient size and/or use of iterative reconstruction technique. FINDINGS: BRAIN: There is no evidence of cerebral edema, mass, mass effect, hemorrhage, recent cortical infarct. The brain volume is age appropriate. The borrego-white distinction is maintained. SKULL: No acute abnormality is seen. The previously described right temporal bone fracture is redemonstrated. VENTRICLES: The ventricles are normal in size an d configuration. ORBITS, VISUALIZED PARANASAL SINUSES AND MASTOIDS: Right maxillary sinus air- fluid level is seen compatible with sinusitis. The mastoid air cells are clear. No orbital pathology is seen. IMPRESSION: 1. No acute intracranial abnormality identified. 2. Right maxillary sinusitis. 3. Right temporal bone fracture redemonstrated. Spine cervical wo EXAMINATION: Noncontrast cer vical spine CT with reconstructions. 04/09/2019 [facility] contrast CT HISTORY: Neck pain status post trauma; TECHNIQUE: Noncontrast CT of the cervical spine was performed in the axial plane. Sagittal and coronal reconstructions were performed by the technologist and sent to the workstation for review. This exa m was performed according to our departmental dose-optimization program which includes automated exposure control, adjustment of the mA and/or kV according to patient size and/or use of iterative reconstruction technique. IV Contrast: None. DLP: 408 mGy-cm COMPARISON: There are no comparisons. FINDINGS: There are no acute fractures of the cervical spi ne. There is reversal of normal cervical lordosis centered at C5-C6 without listhesis. Vertebral bodies are normal height without compression fractures. The craniocervical junction is normal. The spinal ca nal is normal in caliber on sagittal images. There is mild intervertebral disc space narrowing at C4-C5. The remaining intervertebral disc spaces are within normal limits. There is no substantial uncove rtebral or facet osteoarthri tis identified. There is no osseous neuroforaminal stenosis. No soft tissue abnormality is identified. IMPRESSION: 1. No acute fractures of the cervical spine. Internal Auditory PATIENT NAME: GALDINO SEVERINO 10/15/2018 [facility] wo contrast CT : 1985; Age: 32 years y/o Female MR: [id number] STUDY: Internal Auditory Canal wo contrast CT 12:25 CDT ORDERING PHYSICIAN: Rosalba Barnes CLINICAL INDICATION: - Right temporal bone frac ture, right otorrhea; TECHNIQUE: Contiguous axial images of the temporal bones are performed. Magnified computer reformatted images of the inner ear structures are also available in multiple planes. The study was reconstruct ed from the same-day brain C T. No additional radiation was administered. The DLP for the brain CT was 764 DLP: 764 mGy-cm. This exam was performed acc ording to our departmental dose-optimization protocol, which includes automated exposure control, adjustment of the mA and/or kV according to patient size and/or use of iterative reconstruction technique. COMPARISON: 10/15/[address] FINDINGS: Right temporal bone: External auditory canal: Patent Tympanic Membrane: Barely visualized Scutum: Intact Ossicles: Well visualized and intact. No evidenc e of ossicular dislocation. Middle ear cavities: Clear Mastoid air cells: Nondispla thomas, otic capsule sparing (longitudinal) fracture. The fracture extends to the epitympanic cavity. The fracture extends to the apex of the air cells but does not involve the squamous temporal bone. The air cells are partia lly opacified. Tegmen Tympani: Intact Tegmen Mastoideum: Nondisplaced fracture Inner ear: Normal Cochlea and vestibules. No de finite otosclerosis. Semicircular canals: Normal. Not dehiscent. Facial canal: Normal. Vestibular Aqueducts: Not enlarged Petrous apex: Intact Left temporal bone: External auditory canal: Patent Tympanic Membrane: Barely visualized Scutum: Intact Ossicles: Well visualized and intact Middle ear cavities: Clear Mastoid air cells: Clear Tegmen Tympani: Intact Tegmen Mastoideum: Intact Inner ear: Normal Cochlea and vestibules. No de finite otosclerosis. Semicircular canals: Normal. Not dehiscent. Facial canal: Normal. Vestibular Aqueducts: Not enlarged Petrous apex: Intact IMPRESSION: 1. Nondisplaced, otic capsu le sparing (longitudinal) right petrous temporal bone fracture involving the mastoid air cells, extending into the epitympanic cavity without associated ossicular disruption, and extending to the tegmen mastoideum without associated middle cranial fossa epidural hematoma. The mastoid air cells are partially opacified. 2. Normal left temporal bone/IAC Brain wo contrast CT Brain wo contrast CT 10/15/2018 10:41 CDT [facility] Clinical Indication: - s/p trauma; rt otorrhea; COMPARISON: None TECHNIQUE: Axial CT images o f the brain are obtained from the skull base to the vertex. Axial, sagittal, and coronal images are interpreted. Contrast: No IV contrast. DLP: 764 mGy-cm. This exam w as performed according to our departmental dose- optimization protocol, which includes automated exposure control, adjustment of the mA and/or kV according to patient size and/or use of iterative reconstruction technique. FINDINGS: BRAIN: There is no evidence of cerebral edema, mass, mass effect, hemorrhage, recent cortical infarct. The brain volume is age appropriate. The borrego-white distinction is maintained. SKULL: Nondisplaced right te mporal bone longitudinal fracture is present. Small volume right mastoid fluid is present. The right middle ear cavity appears well aerated. VENTRICLES: The ventricles are normal in size an d configuration. ORBITS, VISUALIZED PARANASAL SINUSES AND MASTOIDS: Visualized paranasal sinuses are clear. The mastoid air cells are clear. No orbital pathology is seen. IMPRESSION: 1. No acute intracranial abnormality identified. 2. Nondisplaced right tempor al bone longitudinal fracture. Small volume right mastoid air cell fluid. Consultation Notes No Data Provided for This Section Discharge Summaries No Data Provided for This Section History and Physicals No Data Provided for This Section Vital Signs Vital Sign Value Date Comments Source Respitory Rate 13 06/25/2019 [facility] Systolic (mm Hg) 120 06/25/2019 [facility] Diastolic (mm Hg) 76 06/25/2019 [facility] Temperature Oral (F) 98 F 06/25/[address] [facility] [address] [facility] Respitory Rate 14 06/25/2019 [facility] Systolic (mm Hg) 126 06/25/2019 [facility] Diastolic (mm Hg) 71 06/25/2019 [facility] Respitory Rate 26 06/25/2019 [facility] Systolic (mm Hg) 123 06/25/2019 [facility] Diastolic (mm Hg) 70 06/25/2019 [facility] Heart Rate 87 06/25/2019 [facility] Temperature Oral (F) 98.4 F 06/25/2019 [facility] Height 170.18 cm 06/25/2019 [facility] BMI Calculated 26.92 06/25/2019 [facility] Weight 77.955 06/25/2019 [facility] Systolic (mm Hg) 119 06/05/2019 [facility] Diastolic (mm Hg) 75 06/05/2019 [facility] Heart Rate 88 06/05/2019 [facility] [place][note 2] Cit y Respitory Rate 17 06/05/2019 [facility] ity Temperature Oral (F) 99 F 06/05/2019 [facility] [place] Height 170.18 cm 06/05/2019 [facility] [place][note 2] [facility] BMI Calculated 29.35 06/05/2019 [facility] [place][note 2] C ity Weight 85 06/05/2019 [facility] [place][note 2] [facility] Temperature Oral (F) 98.7 F [facility]/28/[facility] 77 05/28/2019 [facility] Respitory Rate 16 05/28/2019 [facility] Systolic (mm Hg) 108 05/28/[place] [facility] Diastolic (mm Hg) 63 05/28/[address] Systolic (mm Hg) 105 05/28/[place] [facility] Diastolic (mm Hg) 51 05/28/[address] Heart Rate 81 05/28/2019 [facility] Respitory Rate 18 05/28/2019 [facility] Temperature Oral (F) 98.7 F 05/28/2019 [facility] Height 170.18 cm 05/28/2019 [facility] BMI Calculated 29.69 05/28/2019 [facility] Weight 86 05/28/2019 [facility] Systolic (mm Hg) 118 04/09/2019 [facility] Diastolic (mm Hg) 60 04/09/2019 [facility] Heart Rate 91 04/09/2019 [facility] [place][note 2] [facility] Temperature Oral (F) 98.4 F 04/09/2019 [facility] [place] Respitory Rate 18 04/09/2019 [facility] it Systolic (mm Hg) 114 04/09/2019 [facility] Diastolic (mm Hg) 68 04/09/2019 [facility] Systolic (mm Hg) 115 04/09/2019 [facility] Diastolic (mm Hg) 76 04/09/2019 [facility] Heart Rate 115 04/09/2019 [facility] [place][note 2] Cit y Respitory Rate 18 04/09/2019 [facility] it Temperature Oral (F) 98.1 F 04/09/2019 [facility] [place] Height 170.18 cm 04/09/2019 [facility] [place][note 2] Cit y BMI Calculated 30.13 04/09/2019 [facility] it Weight 87.273 04/09/2019 [facility] [place][note 2] Cit y Systolic (mm Hg) 98 10/17/2018 [facility] Diastolic (mm Hg) 61 10/17/2018 [facility] Respitory Rate 16 10/17/2018 [facility] it Heart Rate 71 10/17/2018 [facility] [place][note 2] Cit y Temperature Oral (F) 98.1 F 10/17/2018 [facility] Heart Rate 69 10/17/2018 [facility] [place][note 2] Cit y Systolic (mm Hg) 100 10/17/2018 [facility] Diastolic (mm Hg) 58 10/17/2018 [facility] Temperature Oral (F) 97.9 F 10/17/2018 [facility] Heart Rate 70 10/17/2018 [facility] [place][note 2] Cit y Systolic (mm Hg) 97 10/17/2018 [facility] Diastolic (mm Hg) 60 10/17/2018 [facility] Respitory Rate 16 10/17/2018 [facility] ity Respitory Rate 18 10/17/2018 [facility] it Temperature Oral (F) 97.9 F 10/17/2018 [facility] [place] BMI Calculated 28.25 10/15/2018 [facility] ity Weight 81.818 10/15/2018 [facility] [place][note 2] Cit y Height 170.18 cm 10/15/2018 [facility] Weight 81.818 10/15/2018 [facility] BMI Calculated 28.25 10/15/2018 [facility] [place][note 2] C ity Height 170.18 cm 10/15/2018 [facility] Systolic (mm Hg) 121 10/02/2018 [facility] [place][note 2] City Diastolic (mm Hg) 75 10/02/2018 [facility] Heart Rate 71 10/02/2018 [facility] Temperature Oral (F) 98.0 F 10/02/2018 [facility] [place] Respitory Rate 19 10/02/2018 [facility] [place][note 2] C ity Systolic (mm Hg) 119 10/02/2018 [facility] [place][note 2] City Diastolic (mm Hg) 66 10/02/2018 [facility] Heart Rate 89 10/02/2018 [facility] Respitory Rate 15 10/02/2018 [facility] [place][note 2] C ity Weight 81.818 10/02/2018 [facility] Height 170.18 cm 10/02/2018 [facility] BMI Calculated 28.25 10/02/2018 [facility] [place][note 2] C ity Heart Rate 77 10/02/2018 [facility] Systolic (mm Hg) 119 10/02/2018 [facility] [place][note 2] City Diastolic (mm Hg) 57 10/02/2018 [facility] Temperature Oral (F) 98.2 F 10/02/2018 [facility] [place] Respitory Rate 17 10/02/2018 [facility] [place][note 2] C ity Respitory Rate 17 09/23/2018 [facility] [place][note 2] C ity Heart Rate 96 09/23/2018 [facility] Systolic (mm Hg) 123 09/23/2018 [facility] [place][note 2] City Diastolic (mm Hg) 66 [facility] Temperature Oral (F) 99.1 F 09/23/2018 [facility] [place] Temperature Oral (F) 97.9 F 09/19/2018 [facility] [place] Respitory Rate 18 09/19/2018 [facility] [place][note 2] C ity Heart Rate 79 09/19/2018 [facility] Systolic (mm Hg) 129 09/19/2018 [facility] [place][note 2] City Diastolic (mm Hg) 68 [facility]/19/[facility] BMI Calculated 29.04 09/19/2018 [facility] [place][note 2] C ity Weight 84.091 09/19/2018 [facility] Heart Rate 81 09/19/2018 [facility] Respitory Rate 20 09/19/2018 [facility] [place][note 2] C ity Temperature Oral (F) 98.1 F 09/19/2018 [facility] [place] Height 170.18 cm 09/19/2018 [facility] [place][note 2] Cit y Systolic (mm Hg) 123 09/19/2018 [facility] Diastolic (mm Hg) 83 09/19/2018 [facility] Encounters Location Location Encounter Encounter Reason Attending ADM DC Stat us Source Details Type Number For Provider Date Date Visit [facility] Emergency [id number] Kilo Carey 09/19 09/19 Robin 0 [facility] Emergency [id number] Quinten 09/23 09/23 Robin 1 Deandre [facility] Emergency [id number] Cindy 10/02 10/02 Robin 2 Carmella [facility] Observation [id number] Alex 10/15 10/17 [facility] Phone [id number] 10/16 10/18 [facility] Neurosurger Message Neur o y [facility] Emergency [id number] Quinten 04/09 04/10 [facility] [id number] Adina 05/28 05/28 Robin 5 [facility] Emergency [id number] Kilo Carey 06/05 06/05 Robin [facility] Emergency [id number] Morris 06/25 06/25 Robin 7 Gabriela [facility] Procedures No Data Provided for This Section Assessment and Plan Assessment and Plan Date Source Extracted from:Title: Discharge Summary * 10/17/2018 [facility] Author: Alex Abad MD Date: 10/17/18 Discharge Plan Diagnosis Recurrent seizures ([id number] G40.909, Working, Medical). Temporal bone fracture ([id number] S02.19XA, Working, Medical) . Extracted from:Title: Progress Note - Neurosurgery Author: Rosalba Barnes Date: 10/16/18 Attending: Vamsi Zhong MD Service: Internal Medicine Code status: None Specified=FULL CODE Reason for Admission: TEMPORAL BONE FRACTURE Working DRG: Isolation: No Isolation/Standard Precautions Consulting Physicians: Vic Valentin MD Office: Service : Otolaryngology Nathaniel Beltran MD Office: Service : Neurosurgery Frank Downey MD Office: [phone] Service: Medicine, Neurology Progress Note - Daily [facility] Completed: Sep, 12:52 by Rosalba Barnes RM: [id number] - 00, J5MA LEVEL, PRATEEK LSIA 32y (: 1985) F Attending: Vamsi Zhong MD Service: Internal Medicine Reason for Admission: TEMPORAL BONE FRACTURE Working DRG: Code status: None Specified=FULL CODE Current diet: regular Isolation: No Isolation/Standard Precautions Allergies: NKDA SUBJECTIVE No acute events overnight. Patient repor jena continued headache pain to right temporal region, dizziness, and alteration of speech. OBJECTIVE General: NAD; patient resting comfortably in bed Neuro: Awake, alert, and oriented x3. Sp eech is fluent if slightly delayed. Pupils equal, round, and reactive to light. Extraoccular movements intact. Facial sensation and movement intact. Cranial nerve s 2-12 grossly intact bilaterally. Stren gth and sensation intact to bilateral upper and lower extremities Gait: deferred 24hr Labs 10/16 0243 Sodium Lvl 141 Potassium Lvl 3.6 Chloride Lvl 106 CO2 26 AGAP 12.6 Glucose Lvl 90 Creatinine Lvl 0.80 BUN 11 B/C Ratio 14 Total Protein 7.2 Albumin Lvl 3.4 L Globulin 3.8 A/G Ratio 0.9 Calcium Lvl 8.7 ALT 11 AST 11 Bili Total 1.0 Alk Phos 46 eGFR 115 Magnesium Lvl 2.0 Phosphorus 4.6 H WBC 7.7 RBC 4.71 Hgb 12.5 Hct 37.3 MCV 79.2 L MCH 26.5 L MCHC 33.5 RDW 13.2 Platelet 241 MPV 7.8 Segs 54.0 Monocytes 9.9 Lymphocytes 33.7 Eosinophils 1.7 Basophils 0.7 Neutrophils # 4.2 Lymphocytes # 2.6 Monocytes # 0.8 Eosinophils # 0.1 Basophils # 0.1 10/15 1217 Glucose Lvl 147 H BUN 9 Creatinine Lvl 0.99 Sodium Lvl 139 Potassium Lvl 4.1 Chloride Lvl 103 CO2 28 AGAP 12.1 Calcium Lvl 9.3 eGFR 89 S Preg Negative PT 13.4 INR 1.04 PTT 36.5 H Hinojosa still necessary (Yes/No): Line still rubiaolena traylor (Yes/No): Vitals Tmp(F) Pulse BP RR SpO2 FIO2 10/16 12:00 98 65 114/71 20 99 --- 10/16 08:00 98 71 111/68 18 100 --- 10/16 05:25 97.7 69 99/64 16 99 --- 10/16 04:00 97.2 --- ----- -- --- --- 10/16 03:00 ---- 59 102/61 12 98 --- 24 Hr Tmax: 98.1F (36.72c) at 10/15 14:3 7 Vital Signs are the last 5 in the past 48 hours. Date Wt(kg) Wt(lb) Ht(cm) Ht(in) Method 10/15 (initial) 81.82 180.00 Estimated 10/15 170.18 67.00 Stated I&O Record In Out Bal 10/16 24hr Tot 150 0 150 10/15 24hr Tot 0 0 0 Medications (7) Active Scheduled Meds (1): 10/15/18 levETIRAcetam (Keppra 500 mg oral tablet) 1,000 mg PO Q12H Unscheduled Meds: None PRN Meds (6): 10/15/18 Dextrose 50% in Water IV (Dextrose 50% Syringe) 12. 5 gm IVP PRN 10/15/18 Dextrose 50% in Water IV (Dextrose 50% Syringe) 25 gm IVP PRN 10/15/18 acetaminophen 650 mg PO Q4H 10/15/18 glucagon 1 mg IM PRN 10/15/18 morphine Sulfate 1 mg IV Q6H 10/15/18 ondansetron 4 mg IVP Q8H One Time Meds: None Continuous Infusions: None STUDY: Internal Auditory Canal wo contrast CT 10/15/2018 12:2 5 CDT COMPARISON: 10/15/[address] Right temporal bone: External auditory canal: Patent Tympanic Membrane: Barely visualized Scutum: Intact Ossicles: Well visualized and intact. No evidence of ossicul ar dislocation. Middle ear cavities: Clear Mastoid air cells: Nondisplaced, otic ca psule sparing (longitudinal) fracture. The fracture extends to the epitympanic cavity. The fracture extends to the apex of the air cells but does not involve the squamous temporal bone. The air cells are partially opacifie d. Tegmen Tympani: Intact Tegmen Mastoideum: Nondisplaced fracture Inner ear: Normal Cochlea and vestibules. No definite otosc lerosis. Semicircular canals: Normal. Not dehiscent. Facial canal: Normal. Vestibular Aqueducts: Not enlarged Petrous apex: Intact Left temporal bone: External auditory canal: Patent Tympanic Membrane: Barely visualized Scutum: Intact Ossicles: Well visualized and intact Middle ear cavities: Clear Mastoid air cells: Clear Tegmen Tympani: Intact Tegmen Mastoideum: Intact Inner ear: Normal Cochlea and vestibules. No definite otosc lerosis. Semicircular canals: Normal. Not dehiscent. Facial canal: Normal. Vestibular Aqueducts: Not enlarged Petrous apex: Intact IMPRESSION: 1. Nondisplaced, otic capsule sparing ( longitudinal) right petrous temporal bone fracture involving the mastoid air cells, extending into the epitympanic cavity without associated ossicular disruption, and extending to the tegmen mastoideum without associated middle cranial fossa epidural hematoma. The mastoid air cells are partially opacified. 2. Normal left temporal bone/IAC ASSESSMENT and EXAM 32 year old female with nondisplaced, ot ic capsule sparing (longitudinal) fracture of the right temporal bone fracture s/p seizure and head trauma. PLAN and TREATMENT - No evidence of spinal fluid leak or facial palsy - Pending eval by ENT for decreased hearing on the right - Recommend light duty and to avoid coughing, straining, sne ezing, or Valsalva - No indication for prophylactic antibiotics at this time - Concussive symptom management prn; may benefit from outpatient cognitive rehab referral - Follow up in our clinic in 4 weeks wit h pre-clinic CT brain with and without contrast to assess for CSF fistula and/or abscess development - Please contact our office with any questions: Dictated by Rosalba Barnes PA-C on behalf of Dr. Nathaniel Alonso. Thank you for including us in the care of this patient. Addendum by Nathaniel Beltran MD on 10/16/2018 14:41 I have reviewed the pertinent background information, diagnostic labs and imaging. I discussed the plan with PA. I attest to the information and recommendations as documented, with the following comments: -T-bone scan reassuring. Will see in 4 weeks with repeat head CT include contrast. Extracted from:Title: Clinical Document Author: Frank Downey MD Date: 10/15/18 NEUROLOGY [facility] Consultation / Progress Note Assessment / Recommendations / Plan Recurrent generalized seizure Secondary to 1) accidental noncompliance with Keppra, 2) sleep deprivation The patient should not work overnigh t shifts from a medical/neurological standpoint. She is being offered another job to work 3-11 shift, that would be acceptable. Continue Keppra 500 mg twice daily. This is probably the appropriate dose for this patient. No driving for 3 months, pursuant to [place] state law. Is clear that both the patient, and her friend [facility], both understand that she is not to drive motor vehicle f or 3 months. The patient may take a normal diet. She may be discharged from neurological standpoint. History of Present Illness [id number] Presents with bleeding from right ear, and tinnitus/decrease d hearing CT Head demonstrated a temporal bone skull fracture. Apparently she "fell" from the couch, striking her head, 3 d ays ago. The history is very vague, and the patient is a poor histori an. Her friend is at the bedside, who renders clear history. Monday (10/08/18) the patient suffered a generalized seizure, lasting a minute. The friend is seen seizures before, and recognize this clearly is a generalized tonic-clonic seizure. Very prolonged postictal depressed consciousness (probable c oncussion) The patient, retrospectively, now now st ates that she had missed the 3 previous doses of her Keppra 500 mg twice daily. 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 She has had seizures since the age of about 16 years. She initially took Dilantin for years, b ut in very recent years was switched to Keppra 250 mg twice daily, and a few months ago was switched to 500 mg twice daily. She has seizures perhaps 1 or 2/year, an d as she looks back, she admits that most of those seizures were due to missing some doses of her medication. She also hastens to clarify that she is generally very good about taking her medication (very compliant) She does not drink alcohol at all. 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 PMH Epilepsy PSH No prior surgeries FH Not relevant SocH Never tobacco Home Meds Zofran ODT 4 mg as needed for nausea twice daily Adverse Rxns NKDA Subj See above ROS Const No fever, chills, rigors. No weight changes. Neuro No diplopia, dysarthria, dysphagia. Eyes No pain, redness, photophobia. ENT No new hearing loss, ringing, pain. No sorethroat. Card No CP, palpitations, subj rapid heart rates. Resp No SOB, KOO, wheeze, cough. GI No nausea, vomiting, diahhrea, melena, blood IA. No new urgency, frequency, pain, or urine malodor. Vital Signs (last 24 hrs) Last Charted _ Temp Oral 98.1 DegF (OCT 15 14:37) Heart Rate Apical 82 bpm (OCT 15:) Resp Rate L 12BRMIN (OCT 15:) SBP 122 mmHg (OCT 15:) DBP 75 mmHg (OCT 15:) SpO2 100 % (OCT 15 15:00) Weight 81.818 kg (OCT 15:47) Height 170.18 cm (OCT 15:47) BMI 28.25 (OCT 15:47) Exam Patient's friend accompanied me at the bedside anahi cantu examination. ICU room door was open, and the nurs e was seated just outside at her computer. Neuro Awake. Alert. Lucid. Speech articulate. Fluent. Comprehension intact. Pupils equally round about 2 mm. Visual tracking is normal. Dispenser Operator are absolutely strong bilaterally. Lungs Clear bilaterally. Heart Regular rhythm. No murmurs. Abd Not examined. Skin Warm. Dry. Evaluations CT Head (10/15/18) No acute intracranial abnormality identified. Nondisplaced right temporal bone vianney gitudinal fracture. Small volume right mastoid air cell fluid. CT Temporal bone (10/15/18) Nondisplaced, otic capsule sparing ( longitudinal) right petrous temporal bone fracture involving the mastoid air cells, ext ending into the epitympanic cavity without associated ossicular disruption, and extending to the tegmen mastoide um without associated middle cranial fossa epidural hematoma. The mastoid air cells are partially opacified. Normal left temporal bone/IAC Labs Chol TG HDL LDL VLDL Chol/HDL TSH B12 ESR HgbA1c HCG (-) WBC 6.4 (OCT 15) Hgb 13.5 (OCT 15) Hct 40.3 (OCT 15) Plt 274 (OCT 15) Na 139 (OCT 15) K 4.1 (OCT 15) CO2 28 (OCT 15) Cl 103 (OCT 15) Cr 0.99 (OCT 15) BUN 9 (OCT 15) Glucose Random H 147 (OCT 15) Ca 9.3 (OCT 15) PT 13.4 (OCT 15) INR 1.04 (OCT 15) PTT H 36.5 (OCT 15) Urine Urinalysis : UDS : Micro None Meds Scheduled Meds (1): 10/15/18 21:00 levETIRAcetam (Keppra 500 mg oral tablet) 1,0 00 mg PO Q12H Unscheduled Meds: None PRN Meds (6): 10/15/18 16:08 Dextrose 50% in Water IV (Dextrose 50% Syring e) 12.5 gm IVP PRN 10/15/18 16:08 Dextrose 50% in Water IV (Dextrose 50% Syring e) 25 gm IVP PRN 10/15/18 16:08 acetaminophen 650 mg PO Q4H 10/15/18 16:08 glucagon 1 mg IM PRN 10/15/18 16:08 morphine Sulfate 1 mg IV Q6H 10/15/18 16:08 ondansetron 4 mg IVP Q8H One Time Meds: None Continuous Infusions: None Nutrition Lines Periph Hinojosa None DVT Prophylaxis Ambulatory Adv Dir Full Code (Nonspecified) Time 80 minutes Plan of Care No Data Provided for This Section Social History Social History Date Source Social History TypeResponse 10/15/2018 [facility] Sub[facility] Abuse Use: None. Alcohol Never Smoking Status Never smoker; Exposure to Tobacco Smoke None; Cigarette Smoking Last 365 Days No; Reg Smoking Cessation Counseling No entered on: 10/15/18 Social History TypeResponse 10/15/2018 [facility] Alcohol Never Substance Abuse Use: None. Smoking Status Never smoker; Exposure to Tobacco Smoke None; Cigarette Smoking Last 365 Days No; Reg Smoking Cessation Counseling No entered on: 05/28/19 Social History TypeResponse 10/15/2018 [facility] Alcohol Never Substance Abuse Use: None. Smoking Status Never smoker; Exposure to Tobacco Smoke None; Cigarette Smoking Last 365 Days No; Reg Smoking Cessation Counseling No entered on: 05/28/19 Social History TypeResponse 10/15/2018 [facility] Alcohol Never Substance Abuse Use: None. Smoking Status Never smoker; Exposure to Tobacco Smoke None; Cigarette Smoking Last 365 Days No; Reg Smoking Cessation Counseling No entered on: 06/25/19 Family History No Data Provided for This Section Advance Directives No Data Provided for This Section Functional Status No Data Provided for This Section
--- OUTSIDE RECORDS SUMMARY | 2020-04-15 15:27 | XMS REPORT | Continuity of Care Document ---
:1985 Author Organization [facility] t Address [address] [place] [address] Care Team Providers Name Role Phone Asked, Pcp Primary Care Physician Unavailable Jr Clifton MD Attending Clinician Pierce Ochoa Attending Clinician Osmel Carey Attending Clinician Micaela Blackman Attending Clinician Jay Dias Attending Clinician Ernie Weir Attending Clinician Wade Carrera Attending Clinician Anum Abad Admitting Clinician Payers Payer Name Policy Type Policy Number Effective Date Expiration Date S ource Problems Condition Condition Condition Status Onset Resolution Last Treating Co mments Source Name Details Category Date Date Treatment Clinician Date ALLERGIC Diagnosis Active 2018-072019-06-25 M emoria REACTION/ 08-25 00:49:00 l ABDOMINAL ALLERGIC 00:00: Her carmona PAIN / REACTION/ 00 VOMI ABDOMINAL PAIN / VOMI Active 06/25/2019 [facility] FOLLOWUP/W Diagnosis Active 2018-072019-06-05 Memoria ORKNOTE 1-06 14:26:00 l 00:00: Robin FOLLOWUP/W 00 ORKNOTE Active 06/05/2019 [facility] SEISURE Diagnosis Active 2018-072019-05-28 Me moria 0-29 14:45:00 l SEISURE 00:00: Robin 00 Active 05/28/2019 [facility] SEIZURES Diagnosis Active 2019-04-09 M emoria 9-10 18:15:00 l SEIZURES 00:00: Hossein n 00 Active 04/09/2019 [facility] TEMPORAL Diagnosis Active 2019-09-24 M emoria BONE 3-18 15:02:00 l FRACTURE TEMPORAL 00:00: Herm maxx BONE 00 FRACTURE Active 10/15/2018 [facility] EAR BLEED Diagnosis Active 2018-10-15 Memoria 318 14:56:00 l EAR 00:00: Robin BLEED 00 Active 10/15/2018 [facility] NAUSA, Diagnosis Active 2019-09-24 Mem oria VOMMITING 3-05 15:02:00 l NAUSA, 00:00: Robin VOMMITING 00 Active 10/02/2018 [facility] SKIN Diagnosis Active 2018-11-20 Mem oria IRRITAITIO 2-24 08:49:00 l N TO SKIN 08:00: Robin HANDS/FORE IRRITAITIO 00 ARM N TO HANDS/FORE ARM Active 09/23/2018 [facility] INSECT Diagnosis Active 2018-11-20 Mem oria BITES 2-20 08:52:00 l INSECT 00:00: [place] BITES 00 Active 09/19/2018 [facility] OTH Diagnosis Active 2019-09-24 Mem oria FRACTURE 15:02:00 l OF BASE OF OTH Hossein n SKULL, FRACTURE INIT FOR OF BASE OF SKULL, INIT FOR Active [facility] Allergy, Problem 2018-072019-06-27 2019-06-27 Memoria unspecifie 08-25 22:07:49 22:07:49 l d, initial Allergy, 18:00: He rmann encounter unspecifie 00 d, initial encounter 06/25/2019 06/27/2019 [place] Wheezing Problem 2018-072019-06-27 2019-06-27 Memoria 08-25 22:07:49 22:07:49 l Wheezing 18:00: Hossein n 00 06/25/2019 06/27/2019 [facility] Unspecifie Problem 2018-072019-05-30 2019-05-30 Memoria d 22:12:39 22:12:39 l convulsion 17:00: Hossein n s Unspecifie 00 d convulsion s 05/28/2019 05/30/2019 [facility] Epilepsy, Problem 2019-04-11 2019-04-11 Memoria unspecifie 04-09 22:35:03 22:35:03 l d, not 17:00: Robin intractabl Epilepsy, 00 e, without unspecifie status d, not epilepticu intractabl s e, without status epilepticu s 04/09/2019 04/11/2019 [facility] Nausea Problem 2018-10-05 2018-10-05 M emoria with 3-05 02:12:41 02:12:41 l vomiting, Nausea 06:00: Toya nn unspecifie with 00 d vomiting, unspecifie d 10/02/2018 10/05/2018 [facility] Contact Problem 2018-09-25 2018-09-25 Memoria with and 09-23 22:52:41 22:52:41 l (suspected Contact 06:00: Her carmona ) exposure with and 00 to other (suspected hazardous, ) exposure chiefly to other nonmedicin hazardous, al, chiefly chemicals nonmedicin al, chemicals 09/23/2018 09/25/2018 [facility] Other skin Problem 2018-09-25 2018-09-25 Memoria changes 09-23 22:52:41 22:52:41 l Other 06:00: Robin skin 00 changes 09/23/2018 09/25/2018 [facility] Insect Problem 2018-09-22 2018-09-22 M emoria bite 09-19 03:13:15 03:13:15 l (nonvenomo Insect 06:00: Herm maxx us) of bite 00 scalp, (nonvenomo initial us) of encounter scalp, initial encounter 09/19/2018 09/22/2018 [facility] Insect Problem 2018-09-22 2018-09-22 M emoria bite 09-19 03:13:15 03:13:15 l (nonvenomo Insect 06:00: Herm maxx us) of bite 00 left (nonvenomo wrist, us) of initial left encounter wrist, initial encounter 09/19/2018 09/22/2018 [facility] Insect Problem 2019-2018-09-22 2018-09-22 M emoria bite 09-19 03:13:15 03:13:15 l (nonvenomo Insect 06:00: Herm maxx us) of bite 00 right (nonvenomo wrist, us) of initial right encounter wrist, initial encounter 09/19/2018 09/22/2018 [facility] Allergies, Adverse Reactions, Alerts Allergy Allergy Status Severity Reaction(s) Onset Inactive Treating Comm ents Source Name Type Date Date Clinician No Known DA Active U RACHEL Allergie 10-09 [facility] 00:00: [address] No Known No Known Active Memori a Medicati Medicati l on on Robin Allergmaggy Allergmaggy [facility] Social History Social Habit Start Date Stop Date Quantity Comments Source Sex Assigned At [facility] ethodist Social History 2018-10-15 2018-10-15 [facility] 21:06:33 21:06:33 Medications Ordered Filled Start Stop Current Ordering Indication Dosage Frequency Signature Comments Components Source Medication Medication Date Date Medication? Clinician (SIG) Name Name acetaminoph 2019- 2020- No 1000mg Q6H Take 2 [place] (TYLENOL 08-06 tablets Meth shannon EXTRA 00:00: 23:59 (1,[address] STRENGTH) 00 :00 total) by 500 MG mouth tablet every 6 (six) hours as needed for moderate pain for up to 30 days. ibuprofen 2019- No 600mg Q8H Take 1 [place] (ADVIL) 600 08-06-06 tablet Metho di MG tablet 00:00: 23:59 ([address] 00 :00 total) by mouth every 8 (eight) hours as needed for moderate pain for up to 30 days. metoclopram 2019- 2020- No 10mg Q6H Take 1 Ryan ston keanu 08-0606 tablet (10 Methodi (REGLAN) 10 00:00: 23:59 mg total) st MG tablet 00 :00 by mouth every 6 (six) hours for 30 days. Famotidine 2018-07 Yes 20 mg = 1 Me moria 20 MG Oral 08-25 tab, PO, l Tablet 09:29: BID, # 6 Robin 00 tab, 0 Refill(s) predniSONE 2018-07 Yes 60 mg = 3 Me moria 20 mg oral 08-25 tab, PO, l tablet 09:28: Daily, [place] 00 Take 3 tablets for 60 mg dose, X 3 day, # 9 tab, 0 Refill(s) Diphenhydra 2018-07 Yes 25 mg = 1 M emoria mine 08-25 tab, PO, l Hydrochlori 09:28: BID, X 5 He rmann de 25 MG 00 day, # 10 Oral Tablet tab, 0 [Benadryl] Refill(s) albuterol 2018-07 Yes 2 puff, Memor ia 90 mcg/inh 08-25 INHALATION l inhalation 09:26: , Q4H, PRN H ermann aerosol 00 for wheezing, # 9 gm, 0 Refill(s) Sodium 2018-07 No 1,000 mL, Memori a Chloride 08-25 Infuse l 0.9% 06:56: Over: 1 Robin (Bolus) IV 00 hr, Route: IV, ONCE, Priority: STAT, Dosing Weight 77.955 kg, Start date: 06/25/19 0:56:00 ICE CREAM VAN VENDOR, Stop date: 06/25/19 0:56:00 ICE CREAM VAN VENDOR Albuterol 2018-07 No 9 mL, Memoria 0.833 MG/ML 08-25 Route: l / 06:52: NEB, Robin Ipratropium 00 Dosing [place] Weight 0.167 MG/ML 77.955, Inhalant kg, ONCE, Solution Start [DuoNeb] date: 06/25/19 0:52:00 ICE CREAM VAN VENDOR, Stop date: 06/25/19 0:52:00 ICE CREAM VAN VENDOR Solu-Medrol 2018-07 No Notes: Nic tyrone 08-25 (Same l 06:34: as:Solu-ME Robin 00 DROL, A-Methapre d) Benadryl 2018-07 No Notes: Memoria 08-25 (Same as: l 06:34: Benadryl) [place] 00 Pepcid 2018-07 No Notes: Memoria 08-25 (Same as: l 06:34: Pepcid) Can be dilute in 5-10cc NS IVP: Slow IV push over at least 2 minutes. Levetiracet 2018-07 No Notes: Nic tyrone am 500 MG 0-29 (Same l Oral Tablet 19:10: as:Keppra) Robin [Keppra] Motrin 2018-07 No Notes: Memoria 0-29 (Same as: l 19:08: Motrin) "Do Not Crush" Give with food. Levetiracet Yes 750 mg = 1 Memoria am 750 MG 9-10 tab, PO, l Oral Tablet 23:48: BID, # 60 H ermann [Keppra] tab, 0 Refill(s) Tylenol No 650 mg, Memoria 9-10 Route: PO, l 22:13: Drug form: [place] 00 TAB, ONCE, Dosing Weight 87.273, kg, Priority: STAT, Start date: 04/09/19 17:13:00 CDT, Stop date: 04/09/19 17:13:00 CDT Ativan No 1 mg, Memoria 9-10 Route: PO, l 22:13: Drug form: Robin 00 TAB, ONCE, Dosing Weight 87.273, kg, Priority: STAT, Start date: 04/09/19 17:13:00 CDT, Stop date: 04/09/19 17:13:00 CDT Keppra No 1,000 mg, Memori a 9-10 Route: IV, l 22:12: ONCE, Dosing Weight 87.273, kg, Priority: STAT, Start date: 04/09/19 17:12:00 CDT, Stop date: 04/09/19 17:12:00 CDT Meclizine No Notes: Memori a 3-20 (Same as: l 01:00: Antivert) Meclizine No Notes: Memori a 3-19 (Same as: l 18:08: Antivert) Levetiracet No Notes: Nic tyrone am 500 MG 3-19 (Same l Oral Tablet 02:00: as:Keppra) [place] [Keppra] Morphine No Notes: Memoria 3-18 (Same l 21:08: as:MORPhin e Sulfate) Glucagon No 1 mg, Memoria 3-18 Route: IM, l 21:08: Drug form: Robin PDR/INJ, PRN, Dosing Weight 81.818, kg, PRN Blood Glucose Results, Start date: 10/15/18 16:08:00 CDT, Duration: 30 day, Stop date: 11/14/18 16:07:00 CDT Acetaminoph No Notes: Do M emoria en -18 not exceed l 21:08: 4 gm/day. (Same as: Tylenol) Ondansetron No Notes: Nic tyrone 3-18 (Same as: l 21:08: Zofran) MEDICATION WASTE Product Size: 4 mg Product Wasted: _0__ mg Dextrose No 25 gm, 50 Nic tyrone 50% Syringe 3-18 mL, Route: l 21:08: IVP, Drug Form: INJ, Dosing Weight 81.818, kg, PRN, PRN Blood Glucose Results, Start date: 10/15/18 16:08:00 CDT, Duration: 30 day, Stop date: 11/14/18 16:07:00 CDT Levetiracet 0 Yes 1,000 mg = Memoria am 500 MG 3-18 2 tab, PO, l Oral Tablet 21:03: BID, 0 Herm maxx [Keppra] 00 Refill(s) Ondansetron Yes 4 mg = 1 Me moria 4 MG 3-05 tab, PO, l Disintegrat 17:53: BID, PRN He rmann ing Tablet 00 Nausea and [Zofran] Vomiting, Dissolve tab under tongue, # 10 tab, 0 Refill(s) NS (Bolus) 0 No 1,000 mL, Me moria IV 3-05 1,000 l 15:12: ml/hr, Robin 00 Infuse Over: 1 hr, Route: IV, 1,000, Drug form: INJ, ONCE, Priority: STAT, Dosing Weight 81.818 kg, Start date: 10/02/18 9:12:00 ICE CREAM VAN VENDOR, Stop date: 10/02/18 9:12:00 ICE CREAM VAN VENDOR Vital Signs Vital Name Observation Time Observation Value Comments Source Body height 2019-08-06 11:51:00 170.2 cm [place] [facility] Systolic blood 2019-08-06 11:50:04 115 mm[Hg] [place] [facility] pressure Diastolic blood 2019-08-06 11:50:04 61 mm[Hg] [place] [facility] pressure Heart rate 2019-08-06 11:50:04 105 /min [place] [facility] Body temperature 2019-08-06 11:50:04 37 Velma [place] [facility] Respiratory rate 2019-08-06 11:50:04 18 /min [place] [facility] Oxygen saturation in 2019-08-06 11:50:04 95 /min [place] [facility] Arterial blood by Pulse oximetry Respitory Rate 2019-06-25 09:47:00 Memori al Robin Systolic (mm Hg) 2019-06-25 09:47:00 Nic rial [place] Diastolic (mm Hg) 2019-06-25 09:47:00 Mem orial [place] Temperature Oral (F) 2019-06-25 09:47:00 98 F [facility] Robin Respitory Rate 2019-06-25 08:53:00 Memori al Robin Systolic (mm Hg) 2019-06-25 08:53:00 Nic rial [place] Diastolic (mm Hg) 2019-06-25 08:53:00 Mem orial Robin Respitory Rate 2019-06-25 08:37:00 Memori al Robin Systolic (mm Hg) 2019-06-25 08:37:00 Nic rial [place] Diastolic (mm Hg) 2019-06-25 08:37:00 Mem orial [place] Heart Rate 2019-06-25 06:30:00 [facility] Robin Temperature Oral (F) 2019-06-25 06:30:00 98.4 F [facility] Robin Height 2019-06-25 06:30:00 170.18 cm [facility] [place] BMI Calculated 2019-06-25 06:30:00 Memori al Robin Weight 2019-06-25 06:30:00 [facility] [place] Systolic (mm Hg) 2019-06-05 20:02:00 Nic rial Robin Diastolic (mm Hg) 2019-06-05 20:02:00 Mem orial [place] Heart Rate 2019-06-05 20:02:00 [facility] Robin Respitory Rate 2019-06-05 20:02:00 Memori al [place] Temperature Oral (F) 2019-06-05 20:02:00 99 F [facility] Robin Height 2019-06-05 20:02:00 170.18 cm [facility] Robin BMI Calculated 2019-06-05 20:02:00 Memori al Robin Weight 2019-06-05 20:02:00 [facility] [place] Temperature Oral (F) 2019-05-28 20:25:00 98.7 F [facility] [place] Heart Rate 2019-05-28 20:25:00 [facility] Robin Respitory Rate 2019-05-28 20:25:00 Memori al Robin Systolic (mm Hg) 2019-05-28 20:25:00 Nic rial [place] Diastolic (mm Hg) 2019-05-28 20:25:00 Mem orial Robin Systolic (mm Hg) 2019-05-28 18:30:00 Nic rial [place] Diastolic (mm Hg) 2019-05-28 18:30:00 Mem orial Robin Heart Rate 2019-05-28 18:30:00 [facility] [place] Respitory Rate 2019-05-28 18:30:00 Memori al [place] Temperature Oral (F) 2019-05-28 18:30:00 98.7 F [facility] [place] Height 2019-05-28 18:30:00 170.18 cm [facility] Robin BMI Calculated 2019-05-28 18:30:00 Memori al [place] Weight 2019-05-28 18:30:00 [facility] Robin Systolic (mm Hg) 2019-04-09 23:41:00 Nic rial [place] Diastolic (mm Hg) 2019-04-09 23:41:00 Mem orial [place] Heart Rate 2019-04-09 23:41:00 [facility] [place] Temperature Oral (F) 2019-04-09 23:41:00 98.4 F [facility] Robin Respitory Rate 2019-04-09 23:06:00 Memori al [place] Systolic (mm Hg) 2019-04-09 23:06:00 Nic rial [place] Diastolic (mm Hg) 2019-04-09 23:06:00 Mem orial [place] Systolic (mm Hg) 2019-04-09 21:49:00 Nic rial [place] Diastolic (mm Hg) 2019-04-09 21:49:00 Mem orial [place] Heart Rate 2019-04-09 21:49:00 [facility] Robin Respitory Rate 2019-04-09 21:49:00 Memori al [place] Temperature Oral (F) 2019-04-09 21:49:00 98.1 F [facility] [place] Height 2019-04-09 21:49:00 170.18 cm [facility] [place] BMI Calculated 2019-04-09 21:49:00 Memori al Robin Weight 2019-04-09 21:49:00 [facility] Robin Systolic (mm Hg) 2018-10-17 21:00:00 Nic rial Robin Diastolic (mm Hg) 2018-10-17 21:00:00 Mem orial [place] Respitory Rate 2018-10-17 21:00:00 Memori al Robin Heart Rate 2018-10-17 21:00:00 [facility] Robin Temperature Oral (F) 2018-10-17 21:00:00 98.1 F [facility] Robin Heart Rate 2018-10-17 20:50:00 [facility] [place] Systolic (mm Hg) 2018-10-17 20:50:00 Nic rial Robin Diastolic (mm Hg) 2018-10-17 20:50:00 Mem orial [place] Temperature Oral (F) 2018-10-17 17:00:00 97.9 F [facility] Robin Heart Rate 2018-10-17 17:00:00 [facility] [place] Systolic (mm Hg) 2018-10-17 17:00:00 Nic rial [place] Diastolic (mm Hg) 2018-10-17 17:00:00 Mem orial Robin Respitory Rate 2018-10-17 17:00:00 Memori al Robin Respitory Rate 2018-10-17 13:00:00 Memori al Robin Temperature Oral (F) 2018-10-17 13:00:00 97.9 F [facility] Robin BMI Calculated 2018-10-15 20:47:00 Memori al Robin Weight 2018-10-15 20:47:00 [facility] Robin Height 2018-10-15 20:47:00 170.18 cm [facility] Robin Weight 2018-10-15 14:29:00 [facility] Robin BMI Calculated 2018-10-15 14:29:00 Memori al [place] Height 2018-10-15 14:29:00 170.18 cm [facility] [place] Systolic (mm Hg) 2018-10-02 18:17:00 Nic rial [place] Diastolic (mm Hg) 2018-10-02 18:17:00 Mem orial [place] Heart Rate 2018-10-02 18:17:00 [facility] [place] Temperature Oral (F) 2018-10-02 18:17:00 98.0 F [facility] [place] Respitory Rate 2018-10-02 18:17:00 Memori al [place] Systolic (mm Hg) 2018-10-02 16:10:00 Nic rial [place] Diastolic (mm Hg) 2018-10-02 16:10:00 Mem orial [place] Heart Rate 2018-10-02 16:10:00 [facility] Robin Respitory Rate 2018-10-02 16:10:00 Memori al Robin Weight 2018-10-02 14:48:00 [facility] Robin Height 2018-10-02 14:48:00 170.18 cm [facility] Robin BMI Calculated 2018-10-02 14:48:00 Memori al Robin Heart Rate 2018-10-02 14:48:00 [facility] Robin Systolic (mm Hg) 2018-10-02 14:48:00 Nic rial [place] Diastolic (mm Hg) 2018-10-02 14:48:00 Mem orial [place] Temperature Oral (F) 2018-10-02 14:48:00 98.2 F [facility] [place] Respitory Rate 2018-10-02 14:48:00 Memori al Robin Respitory Rate 2018-09-23 15:13:00 Memori al [place] Heart Rate 2018-09-23 15:13:00 [facility] [place] Systolic (mm Hg) 2018-09-23 15:13:00 Nic rial [place] Diastolic (mm Hg) 2018-09-23 15:13:00 Mem orial [place] Temperature Oral (F) 2018-09-23 15:13:00 99.1 F [facility] Robin Temperature Oral (F) 2018-09-19 19:16:00 97.9 F [facility] [place] Respitory Rate 2018-09-19 19:16:00 Memori al Robin Heart Rate 2018-09-19 19:16:00 [facility] [place] Systolic (mm Hg) 2018-09-19 19:16:00 Nic rial [place] Diastolic (mm Hg) 2018-09-19 19:16:00 Mem orial Robin BMI Calculated 2018-09-19 18:42:00 Memori al Robin Weight 2018-09-19 18:42:00 [facility] Robin Heart Rate 2018-09-19 18:42:00 [facility] Robin Respitory Rate 2018-09-19 18:42:00 Memori al Robin Temperature Oral (F) 2018-09-19 18:42:00 98.1 F [facility] [place] Height 2018-09-19 18:42:00 170.18 cm [facility] Robin Systolic (mm Hg) 2018-09-19 18:42:00 Nic rial [place] Diastolic (mm Hg) 2018-09-19 18:42:00 Mem orial [place] Procedures Procedure Date / Time Performed Performing Clinician Sourc e GRAM STAIN 2019-08-06 13:50:00 Randolph Clifton [facility] URINE CULTURE 2019-08-06 13:50:00 Randolph Clifton [facility] URINALYSIS SCREEN AND 2019-08-06 12:59:00 Randolph Clifton [facility] MICROSCOPY, WITH REFLEX TO CULTURE POC , URINE 2019-08-06 12:55:00 Randolph Clifton on [facility] INFLUENZA ANTIGEN TEST, 2019-08-06 12:17:00 Randolph Clifton [facility] REFLEX NEGATIVE TO RPP RESPIRATORY PATHOGEN 2019-08-06 12:17:00 Randolph Clifton on [facility] PANEL HEPATITIS B SURFACE 2019-07-10 10:21:00 Pito Gomez [facility] ANTIBODY MEASLES (RUBEOLA) 2019-07-10 10:21:00 Pito Gomez [facility] ANTIBODY IGG RUBELLA AB IGG 2019-07-10 10:21:00 Pito Gomez on [facility] VARICELLA ZOSTER VIRUS 2019-07-10 10:21:00 Pito Gomez AB, IGG MUMPS VIRUS ANTIBODY, 2019-07-10 10:21:00 Pito Gomez IGG Plan of Care Planned Activity Planned Date Details Comments Source Future Scheduled 2020-03-31 INFLUENZA VACCINE [place] [facility] Test 00:00:00 [code = INFLUENZA VACCINE] Future Scheduled 2008-11-05 Screening for [place] [facility] Test 00:00:00 malignant neoplasm of cervix (procedure) [code = 886347900] Encounters Start End Encounter Admission Attending Care Care Encounter Source Date/Time Date/Time Type Type Clinicians Facility Department ID 2019-08-06 2019-08-06 Emergency FATOUMATA [facility] [id number] [place] 00:00:00 00:00:00 BEAU [address] 2019-06-25 2019-06-25 Outpatient MARCO A Ochoa [facility] [id number] 00:27:19 03:57:00 Morris Nunezmy 2019-06-25 2019-06-25 Emergency E [facility] [id number] 00:27:00 00:27:00 2019-06-05 2019-06-05 Outpatient Kilo Carey [facility] [id number] 13:42:28 14:36:00 Osmel Cotto 2019-06-05 2019-06-05 Emergency E [facility] [id number] [place] 13:42:00 13:42:00 [facility] 2019-05-28 2019-05-28 Outpatient Hiral [facility] [id number] 13:19:53 15:55:00 Adina Hinojosa 2019-05-28 2019-05-28 Emergency E [facility] [id number] [facility] 13:19:00 13:19:00 2019-04-09 2019-04-09 [facility] [id number] 16:42:03 19:19:00 Quinten Thompson 2019-04-09 2019-04-09 Emergency E [facility] [id number] Mem[place] 16:42:00 16:42:00 [facility] 2018-10-16 2018-10-17 Outpatient MHMISCHER MHMISCHER [id number] 13:03:00 23:59:59 00 2018-10-15 2018-10-17 Outpatient [facility] [id number] 09:21:00 17:45:00 03 2018-10-15 2018-10-15 Outpatient E [facility] [id number] Memoria 13:57:00 13:57:00 martell [facility] 2018-10-02 2018-10-02 Outpatient Carmella [facility] [id number] 08:35:00 12:29:00 Cindyfrancisca Klein 2018-10-02 2018-10-02 Emergency E [facility] [id number] Memoria 08:35:00 08:35:[address] [facility] 2018-09-23 2018-09-23 Outpatient Deandre [facility] [id number] 08:55:00 10:10:00 Quinten Olvera 2018-09-23 2018-09-23 Emergency E [facility] [id number] Memoria 08:55:00 08:55:[address] [facility] 2018-09-19 2018-09-19 Outpatient Kilo Carey [facility] [id number] 12:37:00 13:19:00 Osmel Yadiel 00 Results Test Description Test Time Test Comments Results Result Sour e Comments - XR CHEST 1V 2020-02-21 Patient Name: 04:45:00 GALDINO SEVERINO Unit No: [id number] EXAMS: CPT CODE: [id number] XR CHEST 1V [id number] EXAM: - XR CHEST 1V LOCATION: C3 HISTORY: dyspnea COMPARISON: 04/10/2019 FINDINGS: Single view of the chest. No indwelling lines or tubes. No pneumothorax. The lungs are clear without significant effusions. The mediastinal contours are unremarkable/unchanged . No acute osseous findings are present. IMPRESSION: No acute cardiopulmonary abnormality. at 0445 Reported and signed by: Adolfo Ortiz MD CC: Jr Harrell MD Technologist: Deb Lion, RT(R) Transcrpt Date/Tm/Trnsp: 02/21/2020 (0445) [email or web address] Orig Print D/T: S: 02/21/2020 (0448) [facility] NAME: GALDINO SEVERINO [id number] PHYS: [place] [address] : 1985 AGE: 34 SEX: F LOC: Z.ERS PHONE #: [phone] EXAM DATE: 02/21/2020 STATUS: REG ER FAX #: [phone] RADIOLOGY NO: PAGE 1 Signed Report UA RFLX MICR CULT IF INDICATED 2020-02-20 23:57:00 Test Item Value Reference Range Interpretation Comme nts UA COLOR (test code = COLU) YELLOW YELLOW UA APPEARANCE (test code = APPU) CLEAR CLEAR UA GLUCOSE DIPSTICK (test code = DGLUU) NORMAL MG/DL NORMAL UA BILIRUBIN DIPSTICK (test code = BILU) NEGATIVE MG/DL NEGATIVE UA KETONE DIPSTICK (test code = KETU) 5 MG/DL NEGATIVE UA SPECIFIC GRAVITY (test code = SGU) 1.030 1.003-1.030 N UA BLOOD DIPSTICK (test code = GM) 50 [place]/mm3 NEGATIVE A UA PH DIPSTICK (test code = PO) 5.0 5.0-9.0 N UA PROTEIN DIPSTICK (test code = PROU) NEGATIVE MG/DL NEGATIVE UA UROBILINIOGEN DIPSTICK (test code = URO) 4 MG/DL NORMAL A UA NITRITE DIPSTICK (test code = KAREN) NEGATIVE NEGATIVE UA LEUKOCYTE ESTERASE DIPSTICK (test code = LEUU) NEGATIVE /mm3 NEG ATIVE UA CULTURE NEEDED? (test code = UACULT) NO, WBC<10 Criteria Culture Chk SOURCE OF URINE: VOIDEDIndication for culture: Dysuria/FrequencyUA [id number] 23:57:00 Test Item Value Reference Range Interpretation Comments UA RBC (test code = RBCU) 0-3 RBC/HPF 0-3 UA WBC (test code = XWBCU) 0-3 WBC/HPF 0-5 UA EPITHELIAL CELLS (test code = FEW EPI/HPF FEW EPIU) UA BACTERIA (test code = XBACU) FEW NONE UA MUCUS (test code = MUCU) SLIGHT #/LPF NONE SOURCE OF URINE: VOIDEDIndication for culture: Dysuria/FrequencyUA RFLX MICR CULT IF [id number] 23:33:00 Test Item Value Reference Range Interpretation Comments UA COLOR (test code = COLU) YELLOW YELLOW UA APPEARANCE (test code = CLEAR CLEAR APPU) UA GLUCOSE DIPSTICK (test code NORMAL MG/DL NORMAL = DGLUU) UA BILIRUBIN DIPSTICK (test NEGATIVE MG/DL NEGATIVE code = BILU) UA KETONE DIPSTICK (test code 5 MG/DL NEGATIVE = KETU) UA SPECIFIC GRAVITY (test code 1.030 1.003-1.030 N = SGU) UA BLOOD DIPSTICK (test code = 50 Augusto/mm3 NEGATIVE A GM) UA PH DIPSTICK (test code = 5.0 5.0-9.0 N PO) UA PROTEIN DIPSTICK (test code NEGATIVE MG/DL NEGATIVE = PROU) UA UROBILINIOGEN DIPSTICK 4 MG/DL NORMAL A (test code = URO) UA NITRITE DIPSTICK (test code NEGATIVE NEGATIVE = KAREN) UA LEUKOCYTE ESTERASE DIPSTICK NEGATIVE /mm3 NEGATIVE (test code = LEUU) UA CULTURE NEEDED? (test code Criteria Culture Chk = UACULT) SOURCE OF URINE: VOIDEDIndication for culture: Dysuria/FrequencyUA [id number] 23:33:00 Test Item Value Reference Range Interpretation Comments UA RBC (test code = RBCU) RBC/HPF 0-3 UA WBC (test code = XWBCU) WBC/HPF 0-5 UA EPITHELIAL CELLS (test code = EPI/HPF FEW EPIU) UA BACTERIA (test code = XBACU) NONE SOURCE OF URINE: VOIDEDIndication for culture: Dysuria/FrequencyUA RFLX MICR CULT IF [id number] 23:33:00 Test Item Value Reference Range Interpretation Comments UA COLOR (test code = COLU) YELLOW YELLOW UA APPEARANCE (test code = CLEAR CLEAR APPU) UA GLUCOSE DIPSTICK (test code NORMAL MG/DL NORMAL = DGLUU) UA BILIRUBIN DIPSTICK (test NEGATIVE MG/DL NEGATIVE code = BILU) UA KETONE DIPSTICK (test code 5 MG/DL NEGATIVE = KETU) UA SPECIFIC GRAVITY (test code 1.030 1.003-1.030 N = SGU) UA BLOOD DIPSTICK (test code = 50 Augusto/mm3 NEGATIVE A GM) UA PH DIPSTICK (test code = 5.0 5.0-9.0 N PO) UA PROTEIN DIPSTICK (test code NEGATIVE MG/DL NEGATIVE = PROU) UA UROBILINIOGEN DIPSTICK 4 MG/DL NORMAL A (test code = URO) UA NITRITE DIPSTICK (test code NEGATIVE NEGATIVE = KAREN) UA LEUKOCYTE ESTERASE DIPSTICK NEGATIVE /mm3 NEGATIVE (test code = LEUU) UA CULTURE NEEDED? (test code Criteria Culture Chk = UACULT) SOURCE OF URINE: VOIDEDIndication for culture: Dysuria/FrequencyUA [id number] 23:33:00 Test Item Value Reference Range Interpretation Comments UA RBC (test code = RBCU) RBC/HPF 0-3 UA WBC (test code = XWBCU) WBC/HPF 0-5 UA EPITHELIAL CELLS (test code = EPI/HPF FEW EPIU) UA BACTERIA (test code = XBACU) NONE SOURCE OF URINE: VOIDEDIndication for culture: Dysuria/FrequencyBASIC METABOLIC [id number] 23:00:00 Test Item Value Reference Range Interpretation Comments SODIUM (test code = 138 MMOL/L 137-145 N NA) POTASSIUM (test code = 3.8 MMOL/L 3.5-5.1 N K) CHLORIDE (test code = 105 MMOL/L 98-107 N CL) CARBON DIOXIDE (test 24 MMOL/L 22-30 N code = CO2) ANION GAP (test code = 13 MMOL/L 14-24 L GAP) GLUCOSE (test code = 103 MG/DL 74-106 N GLU) BLOOD UREA NITROGEN 18 MG/DL 7-17 H (test code = BUN) GLOMERULAR FILTRATION > 60 Report ing units: RATE (test code = GFR) ml/mi n/1.73 m2 (Modified MDRD Formula)Referen ce Range: > or = 6 0 ml/min/1.73 m2 CREATININE (test code 0.90 MG/DL 0.52-1.04 N = CREAT) CALCIUM (test code = 8.7 MG/DL 8.4-10.2 N CA) HCG SERUM [id number] 23:00:00 Test Item Value Reference Range Interpretation Comments HCG SERUM QUAL (test code = HCGQL) NEGATIVE NEGATIVE A BASIC METABOLIC [id number] 22:58:00 Test Item Value Reference Range Interpretation Comments SODIUM (test code = 138 MMOL/L 137-145 N NA) POTASSIUM (test code = 3.8 MMOL/L 3.5-5.1 N K) CHLORIDE (test code = 105 MMOL/L 98-107 N CL) CARBON DIOXIDE (test 24 MMOL/L 22-30 N code = CO2) ANION GAP (test code = 13 MMOL/L 14-24 L GAP) GLUCOSE (test code = 103 MG/DL 74-106 N GLU) BLOOD UREA NITROGEN 18 MG/DL 7-17 H (test code = BUN) GLOMERULAR FILTRATION > 60 Report ing units: RATE (test code = GFR) ml/mi n/1.73 m2 (Modified MDRD Formula)Referen ce Range: > or = 6 0 ml/min/1.73 m2 CREATININE (test code 0.90 MG/DL 0.52-1.04 N = CREAT) CALCIUM (test code = 8.7 MG/DL 8.4-10.2 N CA) HCG SERUM [id number] 22:58:00 Test Item Value Reference Range Interpretation Comments HCG SERUM QUAL (test code = HCGQL) NEGATIVE BASIC METABOLIC [id number] 22:51:00 Test Item Value Reference Range Interpretation Comments SODIUM (test code = NA) 138 MMOL/L 137-145 N POTASSIUM (test code = K) 3.8 MMOL/L 3.5-5.1 N CHLORIDE (test code = CL) 105 MMOL/L 98-107 N CARBON DIOXIDE (test code = CO2) MMOL/L 22-30 GLUCOSE (test code = GLU) MG/DL 74-106 BLOOD UREA NITROGEN (test code = MG/DL 7-17 BUN) GLOMERULAR FILTRATION RATE (test code = GFR) CREATININE (test code = CREAT) MG/DL 0.52-1.04 CALCIUM (test code = CA) MG/DL 8.7-9.7 HCG SERUM [id number] 22:51:00 Test Item Value Reference Range Interpretation Comments HCG SERUM QUAL (test code = HCGQL) NEGATIVE BASIC METABOLIC [id number] 22:50:00 Test Item Value Reference Range Interpretation Comments SODIUM (test code = NA) MMOL/L 137-145 POTASSIUM (test code = K) MMOL/L 3.5-5.1 CHLORIDE (test code = CL) 105 MMOL/L 98-107 N CARBON DIOXIDE (test code = CO2) MMOL/L 22-30 GLUCOSE (test code = GLU) MG/DL 74-106 BLOOD UREA NITROGEN (test code = MG/DL 7-17 BUN) GLOMERULAR FILTRATION RATE (test code = GFR) CREATININE (test code = CREAT) MG/DL 0.52-1.04 CALCIUM (test code = CA) MG/DL 8.7-9.7 HCG SERUM [id number] 22:50:00 Test Item Value Reference Range Interpretation Comments HCG SERUM QUAL (test code = HCGQL) NEGATIVE CBC W/AUTO [id number] 22:38:00 Test Item Value Reference Range Interpretation Comments WHITE BLOOD CELL (test code = 8.0 K/MM3 3.8-9.8 N WBC) RED BLOOD CELL (test code = 4.50 M/MM3 3.58-4.97 N RBC) HEMOGLOBIN (test code = HGB) 11.6 G/DL 11.2-14.9 N HEMATOCRIT (test code = HCT) 36.2 % 33.2-43.5 N MEAN CELL VOLUME (test code = 80 fL 80.7-99.1 L MCV) MEAN CELL HGB (test code = MCH) 25.8 pg 27.0-34.1 L MEAN CELL HGB CONCETRATION 32.0 % 32.2-35.7 L (test code = MCHC) RED CELL DISTRIBUTION WIDTH 13.6 % 12.1-15.2 N (test code = RDW) PLATELET COUNT (test code = 224 K/MM3 129-368 N PLT) MEAN PLATELET VOLUME (test code 9.5 fl 7.4-10.4 N = MPV) NEUTROPHIL % (test code = NT%) 55.7 % 43-75 N IMMATURE GRANULOCYTE % (test 0.2 % 0.0-2.0 N code = IG%) LYMPHOCYTE % (test code = LY%) 33.0 % 14-44 N MONOCYTE % (test code = MO%) 8.6 % 4-13 N EOSINOPHIL % (test code = EO%) 2.1 % 0-6 N BASOPHIL % (test code = BA%) 0.4 % 0-2 N NUCLEATED RBC % (test code = 0.0 % 0-1.0 N NRBC%) NEUTROPHIL # (test code = NT#) 4.46 K/mm3 2.0-7.6 N IMMATURE GRANULOCYTE # (test 0.02 x10 3/uL 0-0.03 N code = IG#) LYMPHOCYTE # (test code = LY#) 2.65 K/mm3 1.0-3.8 N MONOCYTE # (test code = MO#) 0.69 K/mm3 0.1-0.8 N EOSINOPHIL # (test code = EO#) 0.17 K/mm3 0.0-0.2 N BASOPHIL # (test code = BA#) 0.03 K/mm3 0.0-0.2 N NUCLEATED RBC # (test code = 0.00 K/mm3 0.0-0.1 N NRBC#) Urine [id number] 18:36:50 Test Item Value Reference Range Interpretation Comments Urine culture Mixed rachid Specimen isolate (test 10-4 col/cc InformationSpe [facility]-4) Source: Urin eSpecimen Site: [facility] MethodistGram [id number] 18:36:50 Test Item Value Reference Range Interpretation Comments Gram stain No WBC's or Specimen result (test organisms seen. InformationS pecimen code = 664-3) Source: UrineS pecimen Site: Clean cat [facility] MethodistRespiratory pathogen [id number] 00:42:14Respiratory pathogen panelNegative for all pathogens tested:Negative for AdenovirusNegative for Coronavirus JJZ9Imedlimw for Coronavirus TU35Bgehrlte for Coronavirus 229ENegative for Coronavirus VH10Mnhccsry for Human MetapneumovirusNegative for Rhinovirus/EnterovirusNegative for Influenza ANegative for Influenza A/R3Ylhhnein for Influenza A/E8Kelgmckm for Influenza A/H1-2009Negative for Influenza BNegative for Parainfluenza Virus 1Negative for Parainfluenza Virus 2Negative for Parainfluenza Virus 3Negative for Parainfluenza Virus 4Negative for Respiratory Syncytial VirusNegative for Bordetella pertussisNegative for Chlamydophila pneumoniaeNegative for Mycoplasma pneumoniaeThis real-time PCR assaydetects the presence of nucleic acids (RNA or DNA) for the respiratory pathogens listed. A result of "Not-detected" does not exclude the possibility of the presence of one or more pathogens at concentrations less than the detectable limits of the assay. Comment: Specimen InformationSpecimen Source: Na resSpecimen [facility] MethodistUrinalysis screen and microscopy, with reflex to [id number] 14:13:18 Test Item Value Reference Range Interpretation Comments Specimen site (test code = Clean catch 2182599) Color, UA (test code = 5778-6) Yellow Appearance, UA (test code = Hazy 5767-9) Specific gravity, UA (test code = 1.029 1.001-1.035 5811-5) pH, UA (test code = 5803-2) 5.0 5.0-8.5 Protein, UA (test code = 86671-6) Negative Negative Glucose, UA (test code = 64214-8) Negative Negative Ketones, UA (test code = 2514-8) Negative Negative Bilirubin, UA (test code = Negative Negative 5770-3) Blood, UA (test code = 5794-3) Large Negative A Nitrite, UA (test code = 5802-4) Negative Negative Urobilinogen, UA (test code = <2.0 <2.0 46296-3) Leukocyte esterase, UA (test code Negative Negative = 5799-2) Epithelial cells, UA (test code = <1 /HPF 5787-7) Round epithelial cells, UA (test <1 0- 1 /HPF code = 82945-4) WBC, UA (test code = 5821-4) 2 0- 4 /HPF RBC, UA (test code = 22192-5) 3 0- 5 /HPF Bacteria, UA (test code = Moderate None seen A 02513-2) Yeast, UA (test code = 37274-2) None seen Yeast with pseudohyphae, UA (test None seen code = 76909-8) Lab Interpretation (test code = Abnormal 19956-6) [facility] , [id number] 12:55:00 Test Item Value Reference Range Interpretation Comments test urine, POC (test code Negative = 3585599) QC done (test code = 298) Yes [place] MethodistInfluenza antigen test, reflex negative to [id number] 12:46:08 Test Item Value Reference Range Interpretation Comments Influenza Negative for Specimen antigen (test Influenza A/B Information ecimen code = 29699-8) antigen. [facility] [place] MethodistCHEM [id number] 06:48:45297Rytvdmdb HermannCHEM PANEL 2019-06-25 06:48:0013[facility] HermannCHEM [id number] 06:48:000.89[facility] HermannCHEM [id number] 06:48:94923Googcffs HermannCHEM [id number] 06:48:003.7[facility] HermannCHEM [id number] 06:48:90928Agilmesf HermannCHEM [id number] 06:48:0025[facility] HermannCHEM [id number] 06:48:008.5 [facility]ann[facility] [id number] 06:48:007.1[facility] HermannCHEM PANEL 2019-06-25 06:48:003.6[facility] HermannCHEM [id number] 06:48:0013[facility] HermannCHEM [id number] 06:48:0012[facility] HermannCHEM [id number] 06:48:0050[facility] HermannCHEM IJPEM9776-06-06 06:48:000.3[facility] HermannCHEM [id number] 06:48:0087[facility] HermannCHEM [id number] 06:48:009.7 [facility] HermannCHEM [id number] 06:48:00 Test Item Value Reference Range Interpretation Comments B/C Ratio (test code = B/C Ratio) 15 1 -25 [facility] HermannCHEM [id number] 06:48:003.5[facility] HermannCHEM PANEL 2019-06-25 06:48:00 Test Item Value Reference Range Interpretation Comments A/G Ratio (test code = A/G Ratio) 1.0 1 0.7-1.6 [facility]KYMWMXUHGNZSF9664-00-18 06:48:00Negative *NA*(06/25/19 12:48 AM) [facility] PmzytgpKPEMNRYANE2650-84-15 06:48:007.0[facility] HermannHEMATOLOGY 2019-06-25 06:48:003.81[facility] NhlylhzOEBWOJYQCX4828-84-52 06:48:0010.0[facility] TgavgggIHXCSBJVFO3776-91-20 06:48:0030.3[facility] BneujepFUVIOWRIUH7051-70-27 06:48:0079.6[facility] IrizrbsUWMYXYYKVH7497-18-51 06:48:00 Test Item Value Reference Range Interpretation Comments MCH (test code = MCH) 26.3 pg 27.0-31.0 [facility] GjfcywjOVZZVEHZDD4649-16-85 06:48:0033.0[facility] HermannHEMATOLOGY 2019-06-25 06:48:0013.6[facility] BuvyortTBAOGNDLSE4555-11-27 06:48:83395Epvzavee YwiwkuuJHPJEZRUAE7203-50-08 06:48:006.8[facility] EtvhkfmGVIFHZPNVZ0017-19-95 06:48:0060.3[facility] EkpnecnAUCWICNYDD0532-88-25 06:48:0028.3[facility] ZRZTJCEHVS6626-77-45 06:48:009.3[facility] NjctvloMPBGYKTJIK6444-30-42 06:48:001.7 [facility] ZczisdpYJUUXARFMJ2503-15-10 06:48:000.4[facility] HermannHEMATOLOGY 2019-06-25 06:48:004.2[facility] BresrctWDNJYBIKMP0690-62-66 06:48:002.0[facility] XwdwknsGACSGCEUTP1907-41-77 06:48:000.7[facility] ZgbylsqXUQQMZRECA9892-68-56 06:48:000.1[facility]- MRI BRAIN W/O [id number] 09:12:00 Patient Name: GALDINO SEVERINO Unit No: [id number] EXAMS: CPT CODE: [id number] MRI BRAIN W/O CONTRAST 77245 R16 - MRI BRAIN W/O CONTRAST HISTORY: vertigo, slurred speech TECHNIQUE: Multiplanar multisequence MR images of the brain were obtained without intravenous contrast. COMPARISON: None FINDINGS: No abnormal brain parenchymal signal. There is no mass, mass effect or abnormal extra-axial fluid collection. Diffusion-weighted images show no hyperacute, acute or early subacute infarction. The ventricles are normal in size, shape, and position. Thereare normal signal voids in the larger intracranial vessels. Marked mucosal thickening in the ethmoid and right maxillary sinuses. The marrow signal pattern is within normal limits. IMPRESSION: No significant intracranial abnormalities. at 0912 Reported and signed by: Guido Crystal MD CC: Kilo Geiger MD Technologist: Adam Astudillo (RT) R (CT) (MRI) Transcrpt Date/Tm/Trnsp: 04/11/2019 (911) [email or web address] Orig Print D/T: S: 04/11/2019 (09) [facility] NAME: GALDINO SEVERINO [place] PHYS: [place] [address] : 1985 AGE: 33 SEX: F LOC: Karri Rowan PHONE #: [phone] EXAM DATE: 04/11/2019 STATUS: ADM IN FAX #: [phone] RADIOLOGY NO: PAGE 1 Signed ReportDRUGS OF ABUSE SCREEN [id number] 00:13:00 Test Item Value Reference Range Interpretation Comments UR COCAINE (test code = NEGATIVE NEGATIVE Cut off Value: 300 COCAU) ng/mL UR CANNABINOIDS (THC) NEGATIVE NEGATIVE Cut of f Value: 50 (test code = CANU) ng/mL UR AMPHETAMINE (test code NEGATIVE NEGATIVE Cu t off Value: 1000 = AMPHU) ng/mL UR BARBITURATE QUAL (test NEGATIVE NEGATIVE Cu t off Value: 200 code = BARBQLU) ng/mL UR BENZODIAZEPINE (test NEGATIVE NEGATIVE Cut off Value: 200 code = BENZU) ng/mL UR OPIATES QUAL (test code NEGATIVE NEGATIVE C ut off Value: 300 = OPIAQLU) ng/mL UR PHENCYCLIDINE (PCP) NEGATIVE NEGATIVE Cut o ff Value: 25 (test code = PHENCU) ng/mL DRUGS OF ABUSE SCREEN [id number] 00:12:00 Test Item Value Reference Range Interpretation Comments UR COCAINE (test code = NEGATIVE NEGATIVE Cut off Value: 300 COCAU) ng/mL UR CANNABINOIDS (THC) NEGATIVE NEGATIVE Cut of f Value: 50 (test code = CANU) ng/mL UR AMPHETAMINE (test code NEGATIVE NEGATIVE Cu t off Value: 1000 = AMPHU) ng/mL UR BARBITURATE QUAL (test NEGATIVE NEGATIVE Cu t off Value: 200 code = BARBQLU) ng/mL UR BENZODIAZEPINE (test NEGATIVE NEGATIVE Cut off Value: 200 code = BENZU) ng/mL UR OPIATES QUAL (test code NEGATIVE = OPIAQLU) UR PHENCYCLIDINE (PCP) NEGATIVE (test code = PHENCU) DRUGS OF ABUSE SCREEN [id number] 00:11:00 Test Item Value Reference Range Interpretation Comments UR COCAINE (test code = NEGATIVE COCAU) UR CANNABINOIDS (THC) NEGATIVE (test code = CANU) UR AMPHETAMINE (test code NEGATIVE NEGATIVE Cu t off Value: 1000 = AMPHU) ng/mL UR BARBITURATE QUAL (test NEGATIVE NEGATIVE Cu t off Value: 200 code = BARBQLU) ng/mL UR BENZODIAZEPINE (test NEGATIVE NEGATIVE Cut off Value: 200 code = BENZU) ng/mL UR OPIATES QUAL (test code NEGATIVE = OPIAQLU) UR PHENCYCLIDINE (PCP) NEGATIVE (test code = PHENCU) DRUGS OF ABUSE SCREEN [id number] 00:11:00 Test Item Value Reference Range Interpretation Comments UR COCAINE (test code = NEGATIVE COCAU) UR CANNABINOIDS (THC) NEGATIVE NEGATIVE Cut of f Value: 50 (test code = CANU) ng/mL UR AMPHETAMINE (test code NEGATIVE NEGATIVE Cu t off Value: 1000 = AMPHU) ng/mL UR BARBITURATE QUAL (test NEGATIVE NEGATIVE Cu t off Value: 200 code = BARBQLU) ng/mL UR BENZODIAZEPINE (test NEGATIVE NEGATIVE Cut off Value: 200 code = BENZU) ng/mL UR OPIATES QUAL (test code NEGATIVE = OPIAQLU) UR PHENCYCLIDINE (PCP) NEGATIVE (test code = PHENCU) DRUGS OF ABUSE SCREEN [id number] 00:10:00 Test Item Value Reference Range Interpretation Comments UR COCAINE (test code = NEGATIVE COCAU) UR CANNABINOIDS (THC) NEGATIVE (test code = CANU) UR AMPHETAMINE (test code NEGATIVE NEGATIVE Cu t off Value: 1000 = AMPHU) ng/mL UR BARBITURATE QUAL (test NEGATIVE NEGATIVE Cu t off Value: 200 code = BARBQLU) ng/mL UR BENZODIAZEPINE (test NEGATIVE code = BENZU) UR OPIATES QUAL (test code NEGATIVE = OPIAQLU) UR PHENCYCLIDINE (PCP) NEGATIVE (test code = PHENCU) DRUGS OF ABUSE SCREEN [id number] 00:09:00 Test Item Value Reference Range Interpretation Comments UR COCAINE (test code = NEGATIVE COCAU) UR CANNABINOIDS (THC) NEGATIVE (test code = CANU) UR AMPHETAMINE (test code NEGATIVE NEGATIVE Cu t off Value: 1000 = AMPHU) ng/mL UR BARBITURATE QUAL (test NEGATIVE code = BARBQLU) UR BENZODIAZEPINE (test NEGATIVE code = BENZU) UR OPIATES QUAL (test code NEGATIVE = OPIAQLU) UR PHENCYCLIDINE (PCP) NEGATIVE (test code = PHENCU) - CT HEAD/BRAIN W/O [id number] 21:07:00 Patient Name: GALDINO SEVERINO Unit No: [id number] EXAMS: CPT CODE: [id number] CT HEAD/BRAIN W/O CONT 27020 EXAM: CT Head without contrast Location code:J9 HISTORY: Seizure COMPARISON: None available. TECHNIQUE: Multiple transaxial images of the brain were obtained without intravenous contrast using 5mm slices.FINDINGS: There is no acute intracranial hemorrhage. There is no mass, mass effect, midline shift or extra-axial fluid collection.Brain parenchymal volume and ventricular caliber are withinnormal limits. Fox-white differentiation is maintained. There is no evidence for acute major vessel infarct. Paranasal sinuses, mastoid air cells and visualized orbital contents are within normal limits. Osseous structures are within normal limits. IMPRESSION:No acute intracranial abnormality. at 2107 Reported and signed by: Lee Webber M.D. CC: Kilo Geiger MD Technologist: RT El(R)(CT); Giorgio Morfin CTDI: DLP: Trnscrpt: 04/10/2019 (2106) [email or web address] [facility] NAME: GALDINO SEVERINOmond PHYS: [place] [address] : 1985 AGE: 33 SEX: F LOC: [employer] PHONE #: [phone] EXAM DATE: 04/10/2019 STATUS: REG ER FAX #: [phone] RAD #: D/C DT PAGE 1 Signed Report Patient Name: GALDINO SEVERINO Unit No: [id number] EXAMS: CPT CODE: [id number] CT HEAD/BRAIN W/O CONT 02856 <Continued> Orig Print D/T: S: 04/10/2019 (2109) [facility] [place] NAME: GALDINO SEVERINO PHYS: [place] [address] : 1985 AGE: 33 SEX: F LOC: [employer] PHONE #: [phone] EXAM DATE: 04/10/2019 STATUS: REG ER FAX #: [phone] RAD #: D/C DT PAGE 2 Signed ReportCOMPREHENSIVE METABOLIC [id number] 21:04:00 Test Item Value Reference Range Interpretation Comments SODIUM (test code = 140 MMOL/L 137-145 N NA) POTASSIUM (test code = 3.6 MMOL/L 3.5-5.1 N K) CHLORIDE (test code = 105 MMOL/L 98-107 N CL) CARBON DIOXIDE (test 26 MMOL/L 22-30 N code = CO2) ANION GAP (test code = 13 MMOL/L 14-24 L GAP) GLUCOSE (test code = 104 MG/DL 74-106 N GLU) BLOOD UREA NITROGEN 14 MG/DL 7-17 N (test code = BUN) GLOMERULAR FILTRATION > 60 Report ing units: RATE (test code = GFR) ml/mi n/1.73 m2 (Modified MDRD Formula)Referen ce Range: > or = 6 0 ml/min/1.73 m2 CREATININE (test code 0.90 MG/DL 0.52-1.04 N = CREAT) TOTAL PROTEIN (test 7.9 G/DL 6.3-8.2 N code = PROT) ALBUMIN (test code = 4.5 G/DL 3.5-5.0 N ALB) CALCIUM (test code = 9.7 MG/DL 8.4-10.2 N CA) BILIRUBIN TOTAL (test 0.3 MG/DL 0.2-1.3 N code = BILT) SGOT/AST (test code = 23 UNITS/L 14-36 N AST) SGPT/ALT (test code = < 6 UNITS/L 9-52 L ALT) ALKALINE PHOSPHATASE 51 UNITS/L 38-126 N (test code = ALKP) HCG SERUM [id number] 21:04:00 Test Item Value Reference Range Interpretation Comments HCG SERUM QUAL (test code = HCGQL) NEGATIVE NEGATIVE A COMPREHENSIVE METABOLIC [id number] 21:02:00 Test Item Value Reference Range Interpretation Comments SODIUM (test code = NA) 140 MMOL/L 137-145 N POTASSIUM (test code = 3.6 MMOL/L 3.5-5.1 N K) CHLORIDE (test code = 105 MMOL/L 98-107 N CL) CARBON DIOXIDE (test MMOL/L 22-30 code = CO2) GLUCOSE (test code = MG/DL 74-106 GLU) BLOOD UREA NITROGEN MG/DL 7-17 (test code = BUN) GLOMERULAR FILTRATION > 60 Report ing units: RATE (test code = GFR) ml/mi n/1.73 m2 (Modified MDRD Formula)Referen ce Range: > or = 6 0 ml/min/1.73 m2 CREATININE (test code = 0.90 MG/DL 0.52-1.04 N CREAT) TOTAL PROTEIN (test G/DL 6.3-8.2 code = PROT) ALBUMIN (test code = 4.5 G/DL 3.5-5.0 N ALB) CALCIUM (test code = MG/DL 8.7-9.7 CA) BILIRUBIN TOTAL (test MG/DL 0.2-1.3 code = BILT) SGOT/AST (test code = UNITS/L 15-37 AST) SGPT/ALT (test code = UNITS/L 9-52 ALT) ALKALINE PHOSPHATASE UNITS/L 38-126 (test code = ALKP) HCG SERUM [id number] 21:02:00 Test Item Value Reference Range Interpretation Comments HCG SERUM QUAL (test code = HCGQL) NEGATIVE NEGATIVE A COMPREHENSIVE METABOLIC [id number] 20:56:00 Test Item Value Reference Range Interpretation Comments SODIUM (test code = NA) 140 MMOL/L 137-145 N POTASSIUM (test code = 3.6 MMOL/L 3.5-5.1 N K) CHLORIDE (test code = 105 MMOL/L 98-107 N CL) CARBON DIOXIDE (test MMOL/L 22-30 code = CO2) GLUCOSE (test code = MG/DL 74-106 GLU) BLOOD UREA NITROGEN MG/DL 7-17 (test code = BUN) GLOMERULAR FILTRATION > 60 Report ing units: RATE (test code = GFR) ml/mi n/1.73 m2 (Modified MDRD Formula)Referen ce Range: > or = 6 0 ml/min/1.73 m2 CREATININE (test code = 0.90 MG/DL 0.52-1.04 N CREAT) TOTAL PROTEIN (test G/DL 6.3-8.2 code = PROT) ALBUMIN (test code = 4.5 G/DL 3.5-5.0 N ALB) CALCIUM (test code = MG/DL 8.7-9.7 CA) BILIRUBIN TOTAL (test MG/DL 0.2-1.3 code = BILT) SGOT/AST (test code = UNITS/L 15-37 AST) SGPT/ALT (test code = UNITS/L 9-52 ALT) ALKALINE PHOSPHATASE UNITS/L 38-126 (test code = ALKP) HCG SERUM [id number] 20:56:00 Test Item Value Reference Range Interpretation Comments HCG SERUM QUAL (test code = HCGQL) NEGATIVE TROPONIN I [id number] 20:54:00 Test Item Value Reference Range Interpretation Comments TROPONIN I RAPID (test code = 0.00 NG/ML 0.00-0.05 N TROPIRAP) COMPREHENSIVE METABOLIC [id number] 20:54:00 Test Item Value Reference Range Interpretation Comments SODIUM (test code = NA) 140 MMOL/L 137-145 N POTASSIUM (test code = K) 3.6 MMOL/L 3.5-5.1 N CHLORIDE (test code = CL) MMOL/L 98-107 CARBON DIOXIDE (test code = CO2) MMOL/L 22-30 GLUCOSE (test code = GLU) MG/DL 74-106 BLOOD UREA NITROGEN (test code = MG/DL 7-17 BUN) GLOMERULAR FILTRATION RATE (test code = GFR) CREATININE (test code = CREAT) MG/DL 0.52-1.04 TOTAL PROTEIN (test code = PROT) G/DL 6.3-8.2 ALBUMIN (test code = ALB) G/DL 3.5-5.0 CALCIUM (test code = CA) MG/DL 8.7-9.7 BILIRUBIN TOTAL (test code = BILT) MG/DL 0.2-1.3 SGOT/AST (test code = AST) UNITS/L 15-37 SGPT/ALT (test code = ALT) UNITS/L 9-52 ALKALINE PHOSPHATASE (test code = UNITS/L 38-126 ALKP) HCG SERUM [id number] 20:54:00 Test Item Value Reference Range Interpretation Comments HCG SERUM QUAL (test code = HCGQL) NEGATIVE COMPREHENSIVE METABOLIC [id number] 20:54:00 Test Item Value Reference Range Interpretation Comments SODIUM (test code = NA) 140 MMOL/L 137-145 N POTASSIUM (test code = K) 3.6 MMOL/L 3.5-5.1 N CHLORIDE (test code = CL) 105 MMOL/L 98-107 N CARBON DIOXIDE (test code = CO2) MMOL/L 22-30 GLUCOSE (test code = GLU) MG/DL 74-106 BLOOD UREA NITROGEN (test code = MG/DL 7-17 BUN) GLOMERULAR FILTRATION RATE (test code = GFR) CREATININE (test code = CREAT) MG/DL 0.52-1.04 TOTAL PROTEIN (test code = PROT) G/DL 6.3-8.2 ALBUMIN (test code = ALB) 4.5 G/DL 3.5-5.0 N CALCIUM (test code = CA) MG/DL 8.7-9.7 BILIRUBIN TOTAL (test code = BILT) MG/DL 0.2-1.3 SGOT/AST (test code = AST) UNITS/L 15-37 SGPT/ALT (test code = ALT) UNITS/L 9-52 ALKALINE PHOSPHATASE (test code = UNITS/L 38-126 ALKP) HCG SERUM [id number] 20:54:00 Test Item Value Reference Range Interpretation Comments HCG SERUM QUAL (test code = HCGQL) NEGATIVE - XR CHEST [id number] 20:49:00 Patient Name: GALDINO SEVERINO Unit No: [id number] EXAMS: CPT CODE: [id number] XR CHEST 1V [id number] Site ID: [id number] HISTORY: Cough, dizziness FINDINGS: The lungs are clear and normally expanded. The heart and pulmonary vasculature is normal. Osseous structures are unremarkable. IMPRESSION: Negative chest X-ray. at 2048 Reported and signed by: Daquan Chavarria MD CC: Kilo Geiger MD Technologist: Geri Clayton (RT) Transcrpt Date/Tm/Trnsp: 04/10/2019 (2048) [email or web address] Orig Print D/T: S: 04/10/2019 (2051) [facility] NAME: GALDINO SEVERINO [id number] PHYS: PER - [place] [address] : 1985 AGE: 33 SEX: F LOC: [facility] PHONE #: [phone] EXAM DATE: 04/10/2019 STATUS: PRE ER FAX #: [phone] RADIOLOGY NO: PAGE 1 [facility] [id number] 20:46:00 Test Item Value Reference Range Interpretation Comments WHITE BLOOD CELL (test code = 9.3 K/MM3 3.8-9.8 N WBC) RED BLOOD CELL (test code = 4.36 M/MM3 3.58-4.97 N RBC) HEMOGLOBIN (test code = HGB) 11.4 G/DL 11.2-14.9 N HEMATOCRIT (test code = HCT) 36.5 % 33.2-43.5 N MEAN CELL VOLUME (test code = 84 fL 80.7-99.1 N MCV) MEAN CELL HGB (test code = MCH) 26.1 pg 27.0-34.1 L MEAN CELL HGB CONCETRATION 31.2 % 32.2-35.7 L (test code = MCHC) RED CELL DISTRIBUTION WIDTH 13.4 % 12.1-15.2 N (test code = RDW) PLATELET COUNT (test code = 263 K/MM3 129-368 N PLT) MEAN PLATELET VOLUME (test code 9.3 fl 7.4-10.4 N = MPV) NEUTROPHIL % (test code = NT%) 64.8 % 43-75 N IMMATURE GRANULOCYTE % (test 0.4 % 0.0-2.0 N code = IG%) LYMPHOCYTE % (test code = LY%) 24.7 % 14-44 N MONOCYTE % (test code = MO%) 8.6 % 4-13 N EOSINOPHIL % (test code = EO%) 1.1 % 0-6 N BASOPHIL % (test code = BA%) 0.4 % 0-2 N NUCLEATED RBC % (test code = 0.0 % 0-1.0 N NRBC%) NEUTROPHIL # (test code = NT#) 6.02 K/mm3 2.0-7.6 N IMMATURE GRANULOCYTE # (test 0.04 x10 3/uL 0-0.03 H code = IG#) LYMPHOCYTE # (test code = LY#) 2.30 K/mm3 1.0-3.8 N MONOCYTE # (test code = MO#) 0.80 K/mm3 0.1-0.8 N EOSINOPHIL # (test code = EO#) 0.10 K/mm3 0.0-0.2 N BASOPHIL # (test code = BA#) 0.04 K/mm3 0.0-0.2 N NUCLEATED RBC # (test code = 0.00 K/mm3 0.0-0.1 N NRBC#) BMVRNQUQUKNE6988-16-01 22:14:82415Befajyef PbbicdpAXTYRCYDUKFO4080-51-36 22:14:003.7[facility] RvfuqgeCXGMUJENOUED5663-24-34 22:14:07784Cgdiamgi [place] XGPAHXXBQZWW7513-45-73 22:14:008.6[facility] SojfwqrWVRCMPYMQXRB7982-48-31 22:14:0095[facility] CyesfgkAIRXOPQRKNUI7003-40-38 22:14:0014[facility] IVYJMYNQCTVL0143-31-86 22:14:0023[facility] YsknbhgYSBLHUHPPTCV3917-09-05 22:14:00 0.96[facility] TomxjpbNSWZIGXJIAPM4350-98-82 22:14:0079[facility] OIQRJHLFFANP0293-90-61 22:14:009.7[facility] KppqbutNIGCYSQNMXLOR1108-92-08 22:14:00Negative *NA*(04/09/19 5:14 PM)[facility] VwprbdbBDPLYZCQHP5444-54-42 22:14:009.1[facility] BamzoqlAADFODFVPD8226-71-38 22:14:004.27[facility] AWCBBHGWLN2425-75-32 22:14:0011.2[facility] KbwkduoDTXZMAMOGL0914-13-59 22:14:00 34.0[facility] UsfgeaoOIMFXKJWRE8261-63-48 22:14:0079.7[facility]annHEMATOLOGY 2019-04-09 22:14:00 Test Item Value Reference Range Interpretation Comments MCH (test code = MCH) 26.1 pg 27.0-31.0 [facility] EmltnwsOKVRRVGZYY8974-41-65 22:14:0032.8[facility]annHEMATOLOGY 2019-04-09 22:14:0014.1[facility] YjxktqwOFBINYATBT3201-11-53 22:14:01340Lnyceygb YifhmslLQCLNZAISM7381-03-67 22:14:007.7[facility] RctccpmKBAGYWPXWE3666-07-82 22:14:0064.1[facility] WeuxwmbXZYJRCWLQF3585-84-98 22:14:0023.8[facility] SZRKRBQZNR1376-70-99 22:14:009.8[facility] UyqruzmRSFVYAGVXH7155-17-95 22:14:001.6 [facility] JqvmwofKNPZNWXSIW3233-70-79 22:14:000.7[facility]annHEMATOLOGY 2019-04-09 22:14:005.8[facility] XkwjjzqCXCXNUFKMA5199-53-12 22:14:002.2[facility] SbfwlohHIBLKUYZJE2395-83-23 22:14:000.9[facility] PpueajmJRMBMKKWBS5143-40-26 22:14:000.1[facility] DmlsjomBSVESABYHC4400-55-38 22:14:000.1[facility] HermannCHEM WRHMS3591-99-23 08:45:0013[facility]annCHEM BMYSE9270-89-93 08:45:0027 [facility]annCHE[facility] SVYCU1144-81-04 08:45:004.2[facility]annCHEM PANEL 2018-10-17 08:45:93958Ayhxhzbf HermannCHEM TVTVB0009-30-85 08:45:27049Asltjnxm HermannCHEM KRRIM0783-38-26 08:45:009.1[facility]annCHEM BTCJV9303-49-13 08:45:0082[facility]annCHEM ORQXJ1510-03-55 08:45:0097[facility]annCHEM MSBWM0384-25-25 08:45:000.92[facility]annCHEM LGWKM8264-52-64 08:45:0015.2 [facility] PvumzdjCYXUCFWHHO8209-51-15 08:45:0036.7[facility]annHEMATOLOGY 2018-10-17 08:45:0079.8[facility] OdyadmzXWQBQUATST2705-44-00 08:45:008.0[facility] TrmzrkvHLGISDTXSI7984-04-73 08:45:0032.8[facility] JzevzueGHUDARMFHA3184-91-00 08:45:70769Vwqkjgip PahrnljBMTBKLRDQF7877-05-51 08:45:00 Test Item Value Reference Range Interpretation Comments MCH (test code = MCH) 26.1 pg 27.0-31.0 [facility] EeqsikfNRPSWHQRYG6468-52-59 08:45:0013.5[facility]annHEMATOLOGY 2018-10-17 08:45:004.60[facility] BdktlgaTPMUTBRBUR9151-00-25 08:45:006.4[facility] EovrvsoPTYGARBQNW8503-88-76 08:45:0012.0[facility] IgpzphuOUKDFGBLXS4489-64-82 08:45:0053.9[facility] AvwvyreIITSPTOPDD1198-91-33 08:45:0010.2[facility] THBTTJWDXU6760-49-79 08:45:000.4[facility] SnzjqgySJSOEKJGIH0696-92-37 08:45:00 33.9[facility] LgfgurtVNMIQRMSFO7199-08-14 08:45:001.6[facility]annHEMATOLOGY 2018-10-17 08:45:003.5[facility] AmcqhkmGGCQOBKDFQ8026-35-70 08:45:002.2[facility] IgsvuglCTGGDUNYLP6379-17-34 08:45:000.7[facility] VaselcnQLLMVGVHDY3805-83-99 08:45:000.1[facility] HermannCHEM CFGFM1691-48-97 07:43:004.6[facility]annCHEM KXGVA2326-89-03 07:43:003.4[facility]annCHEM MEHHA5961-14-21 07:43:0011 [facility]annCHEM DYJQB6738-59-77 07:43:0026[facility]annCHEM PANEL 2018-10-16 07:43:0012.6[facility]annCHEM SURWK8449-21-41 07:43:0090[facility]annCHEM FQNDZ0969-32-09 07:43:0046[facility]annCHEM VNGUX9081-76-05 07:43:73826Buducbgb HermannCHEM TOZJS1167-05-93 07:43:003.6[facility]annCHEM EOBCJ3907-99-01 07:43:62231Mnncsrug HermannCHEM FNNER6916-77-78 07:43:008.7 [facility]annCHE[facility] OTWJM8655-61-56 07:43:007.2[facility]annCHEM PANEL 2018-10-16 07:43:0011[facility]annCHEM GKMNI5711-02-06 07:43:97654Aqjagdav HermannCHEM JATIB0580-84-33 07:43:001.0[facility]annCHEM NPXPU6773-33-52 07:43:0011[facility]annCHEM GWLTA4647-21-19 07:43:000.80[facility]annCHEM RRXOC2789-69-60 07:43:003.8[facility]annCHEM XADJS2374-27-46 07:43:00 Test Item Value Reference Range Interpretation Comments A/G Ratio (test code = A/G Ratio) 0.9 1 0.7-1.6 [facility]annCHEM CNIIO3188-33-06 07:43:00 Test Item Value Reference Range Interpretation Comments B/C Ratio (test code = B/C Ratio) 14 1 6-25 [facility]annCHEM NOQJE2326-37-96 07:43:002.0[facility]annHEMATOLOGY 2018-10-16 07:43:002.6[facility] KtvjkalIXKIWFALZA4196-49-93 07:43:0033.7[facility] UczltafLDDYHWMYKE1072-87-64 07:43:0054.0[facility] GxrwmbvZQNPEPLQAG0380-44-61 07:43:001.7[facility] LgtzbmmJUOGPKYJCW5197-16-36 07:43:009.9[facility] PEJRMXGIMG0981-62-69 07:43:004.2[facility] UjwjykxJQXYYNCWGP1197-01-28 07:43:000.7 [facility] MbtfysvYOFUERRARB7125-39-58 07:43:000.1[facility]annHEMATOLOGY 2018-10-16 07:43:000.8[facility] EkohmwfFBTPPJBLMZ3753-58-70 07:43:000.1[facility] GugaykaVSJBNELVHJ6550-50-76 07:43:13650Tremspkq SiwgyigVHPEZJLUKJ6204-12-85 07:43:007.8[facility] UbatebnJFYIXKZXXN3837-11-11 07:43:0013.2[facility] QCLUEYNHGM5043-08-29 07:43:00 Test Item Value Reference Range Interpretation Comments MCH (test code = MCH) 26.5 pg 27.0-31.0 [facility] EduuecbIBANNMZGHK5542-34-46 07:43:0033.5[facility]annHEMATOLOGY 2018-10-16 07:43:0079.2[facility] ZsnybduOEEZFBEDGQ3341-94-63 07:43:0037.3[facility] AmhbnfvCHNIKMFSVH5530-18-60 07:43:004.71[facility] MfttdfqPVTBVQRSLP7543-06-01 07:43:0012.5[facility] DzdliwjQXYGLJWKKM8488-01-24 07:43:007.7[facility] SYRZKBGISNTS8102-13-74 17:17:0012.1[facility] OsymerdFOCULHYQKOVZ5868-59-69 17:17:0028[facility] BcuvxjoDDJJVJWRGZDG4509-37-78 17:17:009[facility] ZYYZMXDAVMYJ4043-66-81 17:17:31441Qlgsyvnl HxygpzkIQHEUFYEHEXL6357-05-89 17:17:0089[facility] FmlmccwRMJJVPFTOYUK6357-12-70 17:17:000.99[facility] WPHRCLXSCFOJ7973-32-09 17:17:004.1[facility] EnqcpgzSEUFUVKKUEID6714-96-10 17:17:36795Wyqlhcns MqlwackGYVWQVBFJNGW8940-44-08 17:17:60738Blqwekbl Robin NYWQRDGAPJNA5638-10-85 17:17:009.3[facility] HjlkxetQGYKUBUXHCEAF5099-70-58 17:17:00Negative *NA*(10/15/18 12:17 PM)[facility] NnkdaggYAMCHALAXA6511-96-22 17:17:007.7[facility] HwuqxcnXJPEKPODAG1208-17-58 17:17:005.08[facility] GLIFJIZNNT8057-92-63 17:17:0013.5[facility] HispdajAMDXZGCWUI8404-85-09 17:17:00 40.3[facility] FuabtscECRQIPGMOG0124-11-73 17:17:006.4[facility] HermannHEMATOLOGY 2018-10-15 17:17:0033.5[facility] QyntpwuLXNUMAPNVD2552-77-36 17:17:56206Wdufvudv NlfjenqHKGRCDFVEW2660-76-30 17:17:0013.5[facility] GctmuidGLNTFVPYTQ3052-01-09 17:17:0079.5[facility] TkodmbwPQJQUXRZYX0620-10-35 17:17:00 Test Item Value Reference Range Interpretation Comments MCH (test code = MCH) 26.6 pg 27.0-31.0 [facility] QrkrxuuILSBXRQDNJ0498-35-07 17:17:001.2[facility] HermannHEMATOLOGY 2018-10-15 17:17:000.3[facility] FlzmuziCQACVKYEVT5449-44-24 17:17:000.1[facility] MhrowyqMCVCWWSFQR0374-34-82 17:17:000.3[facility] HympepxALSSMKGUWJ4380-97-28 17:17:004.7[facility] WzfkjegUGMWEDZIQQ7209-03-45 17:17:0019.5[facility] QMAZTJDHLL6022-23-60 17:17:001.0[facility] FrdzthhNETTHIFWYS7836-92-35 17:17:005.0 [facility] NagecocUZSXXKOBIO0662-44-31 17:17:0074.2[facility] HermannHEMATOLOGY 2018-10-15 17:17:00 Test Item Value Reference Range Interpretation Comments PTT (test code = PTT) 36.5 s 22.9-35.8 [facility] QvdnchzPZHYWRXNDG7390-63-95 17:17:00 Test Item Value Reference Range Interpretation Comments PT (test code = PT) 13.4 s 12.0-14.7 [facility]ISCA[facility]NEHA3090-75-62 17:17:00 Test Item Value Reference Range Interpretation Comments INR (test code = INR) 1.04 1 0.85-1.17 [facility] SERUM PMHP6865-64-51 15:22:00 Test Item Value Reference Range Interpretation Comments HCG SERUM QUAL (test code = HCGQL) NEGATIVE NEGATIVE A COMPREHENSIVE METABOLIC GULJR4307-08-27 15:22:00 Test Item Value Reference Range Interpretation Comments SODIUM (test code = NA) 141 MMOL/L 137-145 N POTASSIUM (test code = 3.4 MMOL/L 3.5-5.1 L K) CHLORIDE (test code = 104 MMOL/L 98-107 N CL) CARBON DIOXIDE (test 25 MMOL/L 22-30 N code = CO2) GLUCOSE (test code = 90 MG/DL 74-106 N GLU) BLOOD UREA NITROGEN 17 MG/DL 7-17 N (test code = BUN) GLOMERULAR FILTRATION > 60 Report ing units: RATE (test code = GFR) ml/mi n/1.73 m2 (Modified MDRD Formula)Referen ce Range: > or = 6 0 ml/min/1.73 m2 CREATININE (test code = 0.90 MG/DL 0.52-1.04 N CREAT) TOTAL PROTEIN (test 8.5 G/DL 6.3-8.2 H code = PROT) ALBUMIN (test code = 4.7 G/DL 3.5-5.0 N ALB) CALCIUM (test code = 9.7 MG/DL 8.4-10.2 N CA) BILIRUBIN TOTAL (test 0.5 MG/DL 0.2-1.3 N code = BILT) SGOT/AST (test code = 25 UNITS/L 14-36 N AST) SGPT/ALT (test code = 15 UNITS/L 9-52 N ALT) ALKALINE PHOSPHATASE 58 UNITS/L 38-126 N (test code = ALKP) JVUROIIMKBF4640-70-13 15:22:00 Test Item Value Reference Range Interpretation Comments PHOSPHOROUS (test code = PHOS) 3.9 MG/DL 2.5-4.5 N JWAKJHVZZ0949-25-12 15:22:00 Test Item Value Reference Range Interpretation Comments MAGNESIUM (test code = MAG) 2.2 MG/DL 1.6-2.3 N DUKFEXA1485-88-30 15:22:00 Test Item Value Reference Range Interpretation Comments ALCOHOL (test code = ALC) < 10.0 MG/DL <10 - CT HEAD/BRAIN W/O [id number] 15:20:00 Patient Name: GALDINO SEVERINO Unit No: [id number] EXAMS: CPT CODE: [id number] CT HEAD/BRAIN W/O CONT 61036 CLINICAL HISTORY: Seizures, weakness. CT brain, unenhanced. Reformatted sagittal and coronal images. COMPARISON: None. Automated exposure control, iterative reconstruction technique, and/or adjustment of mA and/or kV according to patient's size was utilized for optimum radiation dose reduction. An unenhanced study of the brain was performed. The cortical pattern is symmetric. No areas of edema or structural asymmetries are seen.. No hemorrhage, mass effect, or findings of CVA can be seen. No evidence of ventricular shift. The posterior fossa structures appear to be intact. Bone window settings do not show any evidence of skull fracture. Visualize d sinuses appear to be clear except for some minimal ethmoiditis and sphenoid sinusitis changes. Right posterior parietal scalp injury suggested. Prominent scalp hemorrhage seen but no evidence of skull fracture at the site of injury. IMPRESSION: No acute appearing intracranial abnormality. Location: U19 at 1520 Reported and signed by: Mark De La Torre MD CC: Susanne Marcano MD Technologist: Jr Carreon, RT(R) CTDI: DLP: Trnscrpt: 10/09/2018 (1520) t.SDR.RCM [facility] NAME: GALDINO SEVERINO [place]YS: [place] [address] : 1985 AGE: 32 SEX: F LOC: Seesearch PHONE #: [phone] EXAM DATE: 10/09/2018 STATUS: REG ER FAX #: [phone] RAD #: D/C DT PAGE 1 Signed Report Patient Name: GALDINO SEVERINO Unit No: [id number] EXAMS: CPT CODE: [id number] CT HEAD/BRAIN W/O CONT 04540 <Continued> Orig Print D/T: S: 10/09/2018 (1523) [facility] NAME: GALDINO SEVERINO PHYS: [place] [address] : 1985 AGE: 32 SEX: F LOC: RENALDO PHONE #: [phone] EXAM DATE: 10/09/2018 STATUS: REG ER FAX #: [phone] RAD #: D/C DT PAGE 2 Signed ReportCBC W/AUTO [id number] 15:08:00 Test Item Value Reference Range Interpretation Comments WHITE BLOOD CELL (test code = 9.7 K/MM3 3.8-9.8 N WBC) RED BLOOD CELL (test code = 4.75 M/MM3 3.58-4.97 N RBC) HEMOGLOBIN (test code = HGB) 12.5 G/DL 11.2-14.9 N HEMATOCRIT (test code = HCT) 38.7 % 33.2-43.5 N MEAN CELL VOLUME (test code = 82 fL 80.7-99.1 N MCV) MEAN CELL HGB (test code = MCH) 26.3 pg 27.0-34.1 L MEAN CELL HGB CONCETRATION 32.3 % 32.2-35.7 N (test code = MCHC) RED CELL DISTRIBUTION WIDTH 13.0 % 12.1-15.2 N (test code = RDW) PLATELET COUNT (test code = 267 K/MM3 129-368 N PLT) MEAN PLATELET VOLUME (test code 9.6 fl 7.4-10.4 N = MPV) NEUTROPHIL % (test code = NT%) 75.3 % 43-75 H IMMATURE GRANULOCYTE % (test 0.2 % 0.0-2.0 N code = IG%) LYMPHOCYTE % (test code = LY%) 14.7 % 14-44 N MONOCYTE % (test code = MO%) 9.4 % 4-13 N EOSINOPHIL % (test code = EO%) 0.2 % 0-6 N BASOPHIL % (test code = BA%) 0.2 % 0-2 N NUCLEATED RBC % (test code = 0.0 % 0-1.0 N NRBC%) NEUTROPHIL # (test code = NT#) 7.31 K/mm3 2.0-7.6 N IMMATURE GRANULOCYTE # (test 0.02 x10 3/uL 0-0.03 N code = IG#) LYMPHOCYTE # (test code = LY#) 1.43 K/mm3 1.0-3.8 N MONOCYTE # (test code = MO#) 0.91 K/mm3 0.1-0.8 H EOSINOPHIL # (test code = EO#) 0.02 K/mm3 0.0-0.2 N BASOPHIL # (test code = BA#) 0.02 K/mm3 0.0-0.2 N NUCLEATED RBC # (test code = 0.00 K/mm3 0.0-0.1 N NRBC#) - XR CHEST [id number] 14:34:00 Patient Name: GALDINO SEVERINO Unit No: [id number] EXAMS: CPT CODE: [id number] XR CHEST 1V 23088 Chest Radiograph History: SEIZURE Comparison: None at this time Location: R16 A single frontal view of the chest is submitted. The exam is limited due to a large amount of overlying soft tissue. The heart is within normal limits in size. Pulmonary vasculature is unremarkable. The visualized lungfields appear to be free of disease. The bones appear unremarkable. IMPRESSION: There is no radiographic evidence of acute cardiopulmonary disease. at 1434 Reported and signed by: Sunil Arguello MD CC: Susanne Marcano MD Technologist: Callie Florentino, RT(R)Transcrpt Date/Tm/Trnsp: 10/09/2018 (4783) t.[email or web address].PMT Orig Print D/T: S: 10/09/2018 (6225) [facility] NAME: GALDINO SEVERINO [address] PHYS: SIMELI.Lenore [place] [address] : 1985 AGE: 32 SEX: F LOC: Z.ERS PHONE #: [phone] EXAM DATE: 10/09/2018 STATUS: PREER FAX #: [phone] RADIOLOGY NO: PAGE 1 Signed GyqmurVNQYOABYXUPS3535-68-57 15:56:0012.1[facility]annELECTROLYTES 2018-10-02 15:56:008.5[facility] YrvihiuPYWNQSCOAPTS0140-24-80 15:56:58535Kclbsfmu SpnrcykHGQNYHTYRVWL0526-36-17 15:56:004.1[facility] YimsohaCNZMUXKZWZEY1519-79-86 15:56:67007Sgxnayob CzowgbuSNDBFLTCOCKA6456-25-37 15:56:0082[facility] DBQUNERLXUWJ5427-77-00 15:56:0024[facility] QjjfryeMSCEMRUNJINB5134-87-76 15:56:00 13[facility] XozbvroADCTWDHPXEFU2447-35-37 15:56:31690Qmmwpkxw HermannELECTROLYTES 2018-10-02 15:56:000.86[facility] QwrafqyEWSJMQMYHZYEN4438-29-90 15:56:00Negative *NA*(10/02/18 9:56 AM)[facility] BsdxzlcZBAORBBRVB8308-44-07 15:56:000.3[facility] EaxenmhZNAZNLZDMR2325-73-12 15:56:004.1[facility] UdjftqcLOHCRHJUUW6880-53-10 15:56:000.6[facility] ZjqcqndLDGZFNGYIX6551-43-73 15:56:000.1[facility] MVJFTFKLOH0535-94-05 15:56:001.4[facility] BrgnbtiKKHBYZHFHD8508-74-40 15:56:00 22.2[facility] FqkqsieFTJQTYKDCT9964-35-42 15:56:009.3[facility]annHEMATOLOGY 2018-10-02 15:56:000.9[facility] CqalhmuFRXUVSTINN0985-04-75 15:56:0067.3[facility] WxpxldpADGKDITGXP3326-82-49 15:56:94738Gzfvsqen YlmnfrqDPESAHKVPU6191-54-35 15:56:0033.1[facility] GmkqhdcVYQQANHLLN0064-47-41 15:56:0013.7[facility] SCRODYEKPS5741-38-20 15:56:007.8[facility] PsfixacWXTDJGTETA6528-96-68 15:56:00 79.5[facility] NcpeusxTXNSSUXGIV5661-81-35 15:56:004.74[facility]annHEMATOLOGY 2018-10-02 15:56:00 Test Item Value Reference Range Interpretation Comments MCH (test code = MCH) 26.3 pg 27.0-31.0 [facility] ZjutzgtBMKKZNHQKV6770-50-26 15:56:0037.7[facility]annHEMATOLOGY 2018-10-02 15:56:006.1[facility] IclniwyAOVYBFUKMI1841-18-79 15:56:0012.5[facility]annURINE AND QLBJH2537-08-96 15:56:00<1[facility]ann[facility] AND STOOL 2018-10-02 15:56:001[facility]ann[facility] AND YQYKF8826-83-55 15:56:00Light Yellow *NA*(10/02/18 9:56 AM)[facility] AONLG2897-75-63 15:56:00 Clear (10/02/18 9:56 AM)[facility] BJWXU0492-65-63 15:56:00 Test Item Value Reference Range Interpretation Comments UA Spec Grav (test code = UA Spec 1.018 1 Grav) [facility] EAEZB4879-86-13 15:56:00 Test Item Value Reference Range Interpretation Comments UA pH (test code = UA pH) 7.0 1 5.0-8.0 [facility] UZJXR4781-15-88 15:56:00Negative (10/02/18 9:56 AM) [facility] JPMRK0614-75-33 15:56:00Negative (10/02/18 9:56 AM) [facility] SODDM3316-74-07 15:56:00Performed (10/02/18 9:56 AM) [facility] JUIQA6522-35-60 15:56:00Negative (10/02/18 9:56 AM) [facility] JPXDU5445-32-13 15:56:00Negative *NA*(10/02/18 9:56 AM) [facility] PXEVB3300-77-86 15:56:00Negative *NA*(10/02/18 9:56 AM) [facility] RWCEZ5307-33-42 15:56:00Negative (10/02/18 9:56 AM) [facility]
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
[2020-04-15] MEDS ORDERED: CODEINE 30MG/APAP 300MG TAB ONE (18:59)
[2020-04-15 19:47] VITALS: TEMP 98.9
[2020-04-15 19:49] VITALS: BP 129/74; O2SAT 100
== END 2020-04-15 19:10 | disposition home or self-care (01) ==
LOC: ER 15:18
DX: S02.2XXA Fracture of nasal bones, initial encounter for closed fracture (principal); Y04.2XXA Assault by strike against or bumped into by another person, initial encounter; Y93.9 Activity, unspecified; Y92.149 Unspecified place in prison as the place of occurrence of the external cause; F17.210 Nicotine dependence, cigarettes, uncomplicated
CPT/HCPCS: 70450; 70486; 72125; 76377; 99284